=== PATIENT | female | born 1940 | race Caucasian/White ===

== ENCOUNTER 2019-07-13 17:55 | Emergency (ER) | payer OTHER, SELFPAY ==
[2019-07-13 17:57] VITALS: BP 99/48; PULSE 75; RESP 20; TEMP 36.3; O2SAT 97
--- NOTE | 2019-07-13 17:57 | ED.GENADULT ---
HPI - General Adult General Chief complaint: Fall Stated complaint: FALL/INJURED NECK/SHOULDER Time Seen by Provider: 07/13/19 17:57 Source: patient and family Mode of arrival: wheelchair Limitations: no limitations History of Present Illness HPI narrative: 70-year-old female patient presents to the [facility] with complaints of a fall. Patient states she has been dizzy for the last 2 days. Patient states that she was shopping at [employer] today with her daughter and states that she had an episode of dizziness fell backwards hitting her head on a rack and actually broke apart of the rack off. Patient denies loss of consciousness at the time. Patient states that she is having some posterior neck pain along with some left shoulder pain. Denies any lightheadedness or dizziness at this time. Related Data Home Medications Medication Instructions Recorded Confirmed lisinopril 20 mg tablet 20 mg PO BID 06/14/19 lisinopril 20 mg PO BID 07/13/19 07/13/19 omeprazole 07/13/19 Allergies Allergy/AdvReac Type Severity Reaction Status Date / Time clarithromycin Allergy Unknown Unknown Verified 06/14/19 13:20 dextromethorphan Allergy Unknown Unknown Verified 06/14/19 13:20 fenofibrate Allergy Unknown Unknown Verified 06/14/19 13:20 guaifenesin Allergy Unknown Anaphylactic Verified 06/14/19 13:20 Shock levofloxacin Allergy Unknown Nausea Verified 06/14/19 13:20 metformin Allergy Unknown Rash Verified 06/14/19 13:20 Review of Systems Review of Systems: Narrative: CONSTITUTIONAL: Denies fever, chills, or sweats. EYES: Denies visual changes, redness, or discharge. ENT: Denies rhinorrhea, congestion, sore throat, or otalgia. CARDIOVASCULAR: Denies chest pain, palpitations, or edema. RESPIRATORY: Denies cough or dyspnea. GASTROINTESTINAL: Denies abdominal pain, nausea, vomiting, or diarrhea. GENITOURINARY: Denies dysuria or hematuria. SKIN: Denies rash or itching. MUSCULOSKELETAL: Denies back pain, joint pain, or myalgia. Positive neck pain and left shoulder pain NEUROLOGIC: Positive headache, numbness, or weakness. PSYCHIATRIC: Denies anxiety or depression. [facility] Family History Family History Mother Family history of respiratory disorder, Onset Age: 88 Patient's mother is Father Family history of lung cancer, Onset Age: 93 Other Family history of arthritis Social History Social History Smoking status: Former smoker Smoking end date: 05/04/85 Alcohol intake: never Substance use: never Substance use type: does not use Comments At the time of my signature I agree with nursing past medical history, surgical, social, and family history. There is no relevant family history pertinent to the presenting complaint. Exam Narrative: Exam Narrative: GENERAL: Well-appearing, well-nourished, and in no acute distress. HEAD: Normocephalic, atraumatic. EYES: PERRLA and EOMI. ENT: Nares clear, no rhinorrhea or epistaxis. Mucous membranes moist. NECK: Supple, no lymphadenopathy. No surface trauma, no soft tissue or muscle tenderness or spasm noted. Trachea midline. No subq emphysema or crepitus. No dino tenderness, pain with palpation to firm Palpation at posterior midline of the cervical spine. CHEST: Clear to auscultation. No respiratory distress. HEART: Regular rate and rhythm. No murmur heard. Normal peripheral pulses. ABDOMEN: Soft, nontender, nondistended, normal active bowel sounds. EXTREMITIES: Normal range of motion. No edema. Tenderness on palpation to the posterior humerus of the left arm. There is no obvious bruising noted. Patient does have good range of motion to the left shoulder area. SKIN: Warm, dry, no rash. NEURO: Alert and oriented X4, GCS 15. Cranial nerves II through XII grossly intact. No focal neurological deficits. Normal muscle strength and tone. Normal deep tendon reflex
== END 2019-07-13 18:40 | disposition short-term general hospital (02) ==
PROVIDERS: Emergency Provider Nurse Practitioner Family; PCP Family Medicine
DX: M54.2 Cervicalgia (principal); M25.512 Pain in left shoulder; W19.XXXA Unspecified fall, initial encounter; Z87.891 Personal history of nicotine dependence; E78.00 Pure hypercholesterolemia, unspecified; I10 Essential (primary) hypertension; M10.9 Gout, unspecified
CPT/HCPCS: 99215; G0463; L0140

== ENCOUNTER 2019-07-13 18:58 | Emergency (ER) | payer OTHER, SELFPAY ==
--- NOTE | ~2019-07-13 | CT_ITS ---
EXAMINATION: CT cervical spine wo con DATE: 07/13/2019 19:34 INDICATION: Status post fall. Neck pain. TECHNIQUE: Computed tomography (CT) of the cervical spine was performed without intravenous contrast. The dose-length product was 428 mGy-cm. Automated exposure control and iterative reconstruction tech nique were employed. COMPARISON: CT dated 12/24/2014 FINDINGS: No acute fracture, subluxation or dislocation. There is carotid atherosclerosis. Lung apice s are normal. No significant paraspinal soft tissue abnormality. There is uncinate hypertrophy at C3- 4, C5-6 and C6-7. There is multilevel facet hypertrophy, left greater than right. Odontoid process wi thin normal limits. There is degenerative anterolisthesis at C3-4 and C4-5. IMPRESSION: 1. No acute fracture. 2: Moderate cervical spondylosis. Reviewed, dictated and finalized at location A.
--- NOTE | ~2019-07-13 | CT_ITS ---
EXAMINATION: CT brain wo con DATE: 07/13/2019 19:35 INDICATION: Status post fall. TECHNIQUE: Computed tomography (CT) of the head was performed without intravenous contrast. The dose- length product was 605.33 mGy-cm. Automated exposure control and iterative reconstruction technique w ere employed. COMPARISON: None FINDINGS: Brain parenchymal volume is normal for age. No acute intracranial hemorrhage, infarction, m ass or mass effect. No ventriculomegaly or midline shift. Basilar cisterns are patent. No depressed s kull fractures. Paranasal sinuses and mastoids are pneumatized. There is intracranial atherosclerosis . There are scattered mild periventricular and subcortical white matter changes, most likely related to small vessel ischemic disease (microangiopathy). IMPRESSION: 1. No acute intracranial abnormality. Reviewed, dictated and finalized at location A.
--- NOTE | ~2019-07-13 | XR_ITS ---
XR shoulder LT min 2V 07/13/2019 19:41 Indication: Left shoulder pain after fall Procedure: 4 views left shoulder Comparison: No prior studies for comparison. Findings: There are degenerative changes of the left glenohumeral joint. No significant soft tissue a bnormality. No radiopaque foreign bodies. No acute fracture or traumatic malalignment. Impression: 1: No acute fracture. Reviewed, dictated and finalized at location A. Impression: 1: No acute fracture.
[2019-07-13 19:03] VITALS: BP 125/72; PULSE 75; RESP 16; TEMP 36.7; O2SAT 97
--- NOTE | 2019-07-13 19:04 | ED.FALL ---
HPI - Fall General Chief Complaint: Fall Stated Complaint: fall Time Seen by Provider: 07/13/19 19:02 Source: patient Mode of arrival: EMS Limitations: no limitations History of Present Illness HPI Narrative: A 78 y/o female presents to the ED, via EMS, with c/o fall. Pt states that at 1500 today she fell [facility] She notes that she was dizzy prior to her fall and hit her neck when she fell. Pt reports left shoulder pain and neck pain, but denies LOC. She was able to ambulate after the fall and arrived in the ED with a c-spine immobilizer. complaint: fall Onset (ago): hour(s) (4) Fall from: standing Place fall occurred: other ([facility]) Loss of consciousness: none Symptoms prior to fall: dizziness Location of injury: neck Associated symptoms (after fall): neck pain and other (Left shoulder pain) Related Data Home Medications Medication Instructions Recorded Confirmed lisinopril 20 mg tablet 20 mg PO BID 06/14/19 lisinopril 20 mg PO BID 07/13/19 07/13/19 omeprazole 07/13/19 Allergies Allergy/AdvReac Type Severity Reaction Status Date / Time clarithromycin Allergy Unknown Unknown Verified 06/14/19 13:20 dextromethorphan Allergy Unknown Unknown Verified 06/14/19 13:20 fenofibrate Allergy Unknown Unknown Verified 06/14/19 13:20 guaifenesin Allergy Unknown Anaphylactic Verified 06/14/19 13:20 Shock levofloxacin Allergy Unknown Nausea Verified 06/14/19 13:20 metformin Allergy Unknown Rash Verified 06/14/19 13:20 Review of Systems Review of Systems: All systems reviewed & are unremarkable except as noted in HPI and below Musculoskeletal: Musculoskeletal: Reports arthralgias (Left shoulder) and Reports neck pain Neurologic: Denies other (LOC) [facility] Past Medical History Medical History Acute pain of left shoulder Anxiety Arthritis Breast cancer Bronchitis Cataracts, bilateral Chronic kidney disease, stage 3 (moderate) Depression Dermatitis Essential (primary) hypertension GENARO (generalized anxiety disorder) Gastroesophageal reflux disease without esophagitis History of radiation therapy Idiopathic gout, unspecified site Major depressive disorder, recurrent, moderate Mixed hyperlipidemia Morbid (severe) obesity due to excess calories Neuropathic pain PAD (peripheral artery disease) Post-menopausal Posterior neck pain RLS (restless legs syndrome) TMJ pain dysfunction syndrome Type 2 diabetes mellitus with diabetic neuropathy, unspecified Type 2 diabetes mellitus with other diabetic kidney complication Surgical History Surgical History History of cataract surgery History of hysterectomy History of lumpectomy of left breast Family History Family History Mother Family history of respiratory disorder, Onset Age: 88 Patient's mother is Father Family history of lung cancer, Onset Age: 93 Other Family history of arthritis Social History Social History Smoking status: Former smoker Smoking end date: 05/04/85 Alcohol intake: never Substance use: never Substance use type: does not use Exam Narrative: Exam Narrative: APPEARANCE: Well appearing, no apparent distress, well-nourished. HEENT: normocephalic atraumtaic. Nares patent no facial tenderness EYES: PERRL NECK: C-collar in place supple. No midline tenderness to palpation. Tender to palpation of bilateral vertebral C5-7 RESPIRATORY: No respiratory distress. Clear to auscultation bilaterally CARDIOVASCULAR: Regular rate and rhythm without murmurs rubs or gallops. ABDOMINAL: Soft, nontender, nondistended, no rebound or guarding MUSCULOSKELETAl: Moves all extremities. No tenderness to palpation of right upper and bilateral lower extremities. No clubbing cyanosis or edema tender to palpation ov
[2019-07-13 20:26] VITALS: BP 108/67; PULSE 81; RESP 16; TEMP 36.8; O2SAT 100
== END 2019-07-13 20:28 | disposition home or self-care (01) ==
PROVIDERS: Emergency Provider Emergency Medicine; PCP Family Medicine
DX: S16.1XXA Strain of muscle, fascia and tendon at neck level, initial encounter (principal); S40.012A Contusion of left shoulder, initial encounter; F41.9 Anxiety disorder, unspecified; M19.90 Unspecified osteoarthritis, unspecified site; Z85.3 Personal history of malignant neoplasm of breast; I12.9 Hypertensive chronic kidney disease with stage 1 through stage 4 chronic kidney disease, or unspecified chronic kidney disease; N18.3 Chronic kidney disease, stage 3 (moderate); E11.42 Type 2 diabetes mellitus with diabetic polyneuropathy; E11.22 Type 2 diabetes mellitus with diabetic chronic kidney disease; K21.9 Gastro-esophageal reflux disease without esophagitis; W01.0XXA Fall on same level from slipping, tripping and stumbling without subsequent striking against object, initial encounter
CPT/HCPCS: 70450; 72125; 73030; 99284

== ENCOUNTER 2020-09-04 13:23 | Outpatient (CLI) | payer OTHER, SELFPAY ==
--- NOTE | ~2020-09-04 | US_ITS ---
EXAMINATION: US art doppler w cecily SANCHEZ EXAM DATE: 09/04/2020 14:31 INDICATION: R60.0 - Localized edema. Peripheral vascular disease. TECHNIQUE: Segmental pressures and plethysmographic and Doppler waveforms of the brachial and lower e xtremity arteries were obtained. There is no prior study for comparison. FINDINGS: Right and left brachial artery pressures of 133 mm Hg and 126 mm Hg, respectively, are concordant (no rmal difference <= 30 mmHg). RIGHT LEG: The ankle-brachial index (KISHA) is 0.94 (normal >= 0.9-1). The great toe-brachial index (TBI) is 0.53 (normal >= 0.65). The lower extremity ratios, segmental pressure gradients as follows; Proximal superficial femoral artery:- Could not cuff occlude ( mmHg). Distal superficial femoral artery: ----- 1.41 (188 mmHg). Popliteal: 1.31 (174 mmHg). Dorsalis pedis: 0.94 (125 mmHg). Posterior tibial: 0.65 (86 mmHg). (Normal gradients <= 20-30 mmHg between adjacent levels on the same leg or the same levels on the two legs). Arterial waveforms are monophasic. LEFT LEG: The ankle-brachial index (KISHA) is 1.13 (normal >= 0.9-1). The great toe-brachial index (TBI) is 0.68 (normal >= 0.65). The lower extremity ratios, segmental pressure gradients as follows; Proximal superficial femoral artery:- Could not Cuff Occlude ( mmHg). Distal superficial femoral artery: ----- 1.23 (164 mmHg). Popliteal: 1.26 (167 mmHg). Dorsalis pedis: 1.04 (138 mmHg). Posterior tibial: 1.13 (150 mmHg). (Normal gradients <= 20-30 mmHg between adjacent levels on the same leg or the same levels on the two legs). Arterial waveforms are monophasic. IMPRESSION: 1. Right ankle-brachial index 0.94, normal. 2. Left ankle-brachial index 1.13, normal. 3. Segmental pressures as above. Reviewed, dictated and finalized at location B.
--- NOTE | ~2020-09-04 | US_ITS ---
EXAMINATION: US venous doppler LE EXAM DATE: 09/04/2020 14:31 INDICATION: Localized edema, peripheral vascular disease. TECHNIQUE: Multiple grayscale, color flow and Doppler images of the lower extremity deep venous syste ms bilaterally were obtained and reviewed. There is no prior study for comparison. FINDINGS: Right side: The right common femoral, femoral and profunda veins demonstrate normal color flow, respi ratory variation, augmentation and compressibility. Compressibility, color flow confirmed within the right popliteal, posterior tibial, peroneal, and greater saphenous veins. Left side: The left common femoral, femoral and profunda veins demonstrate normal color flow, respira tory variation, augmentation and compressibility. Compressibility, color flow confirmed within the l eft popliteal, posterior tibial, peroneal, and greater saphenous veins. IMPRESSION: 1. No lower extremity deep venous thrombosis bilaterally. Reviewed, dictated and finalized at location B.
== END 2020-09-04 13:24 | disposition home or self-care (01) ==
LOC: ANHIMG 13:25
PROVIDERS: PCP Family Medicine; Visit Provider Physician Assistant
DX: R60.0 Localized edema (principal); I73.9 Peripheral vascular disease, unspecified; I10 Essential (primary) hypertension
CPT/HCPCS: 93923; 93970

== ENCOUNTER 2021-04-17 22:17 | Emergency (ER) | payer OTHER, SELFPAY ==
--- NOTE | ~2021-04-17 | XR_ITS ---
EXAMINATION: XR tibia fibula LT 2V INDICATION: Left lower leg pain TECHNIQUE: Two views of the left tibia and fibula are obtained on three radiographs. COMPARISON: 12/12/2013 FINDINGS: There is no fracture, dislocation, or subluxation. There is tricompartmental osteoarthritis of the knee, moderate in the medial and lateral compartments and severe in the patellofemoral compar tment. Mild osteoarthritis is noted at the ankle. There are posterior and plantar calcaneal enthesoph ytes. The soft tissues are unremarkable. There is a small knee joint effusion. IMPRESSION: 1. Osteoarthritis without acute osseous abnormality. Reviewed, dictated and finalized at location A. RT PRESS OPERATOR
[2021-04-17 22:26] VITALS: BP 144/104; PULSE 71; RESP 18; TEMP 36.4; O2SAT 97
[2021-04-17 23:46] VITALS: BP 177/80; PULSE 64; RESP 13; TEMP 36.6; O2SAT 96
--- NOTE | 2021-04-18 00:11 | ED.EXTPRO ---
HPI - Extremity Problem General Chief complaint: Extremity Problem,Nontraumatic Stated complaint: leg pain Time Seen by Provider: 04/17/21 23:37 Source: patient History of Present Illness HPI Narrative: Patient presents with left lower extremity pain. Pain is on the distal medial aspect of her left lower leg. She feels warm and red. Reports a history of cellulitis and this feels similar to her prior episodes. Her pain is achy, constant, worse with walking around, no radiation. Symptoms started this morning and appear to be getting worse so she came to the ER for evaluation she denies any fevers, cough, congestion she denies any nausea or vomiting she denies any trauma to the area Related Data Allergies Allergy/AdvReac Type Severity Reaction Status Date / Time clarithromycin Allergy Unknown Unknown Verified 04/17/21 23:45 dextromethorphan Allergy Unknown Unknown Verified 04/17/21 23:45 fenofibrate Allergy Unknown Unknown Verified 04/17/21 23:45 guaifenesin Allergy Unknown Anaphylactic Verified 04/17/21 23:45 Shock levofloxacin Allergy Unknown Nausea Verified 04/17/21 23:45 metformin Allergy Unknown Rash Verified 04/17/21 23:45 Review of Systems Review of Systems: CONSTITUTIONAL: Denies fever, chills, or sweats. EYES: Denies visual changes, redness, or discharge. ENT: Denies rhinorrhea, congestion, sore throat, or otalgia. CARDIOVASCULAR: Denies chest pain, palpitations, or edema. RESPIRATORY: Denies cough or dyspnea. GASTROINTESTINAL: Denies abdominal pain, nausea, vomiting, or diarrhea. GENITOURINARY: Denies dysuria or hematuria. SKIN: Denies rash or itching. MUSCULOSKELETAL: Denies back pain, joint pain, or myalgia. NEUROLOGIC: Denies headache, numbness, dizziness, or weakness. PSYCHIATRIC: Denies anxiety or depression. All systems reviewed & are unremarkable except as noted in HPI and below PMFSH Past Medical History Medical History Acute pain of left shoulder Allergic rhinosinusitis Anxiety Arthritis Atherosclerosis of abdominal aorta Breast cancer Bronchitis Cataracts, bilateral Chronic kidney disease, stage 3 (moderate) Depression Dermatitis Essential (primary) hypertension GENARO (generalized anxiety disorder) Gastroesophageal reflux disease without esophagitis History of radiation therapy Idiopathic gout, unspecified site Lumbar spondylosis Major depressive disorder, recurrent, moderate Mixed hyperlipidemia Morbid (severe) obesity due to excess calories Neuropathic pain Osteoarthritis of knees, bilateral Osteoarthritis of right ankle PAD (peripheral artery disease) Post-menopausal Posterior neck pain Prediabetes RLS (restless legs syndrome) TMJ pain dysfunction syndrome Type 2 diabetes mellitus with diabetic neuropathy, unspecified Type 2 diabetes mellitus with other diabetic kidney complication Surgical History Surgical History History of cataract surgery History of hysterectomy History of lumpectomy of left breast Family History Family History Mother Family history of respiratory disorder, Onset Age: 88 Patient's mother is Father Family history of lung cancer, Onset Age: 93 Other Family history of arthritis Social History Social History Social History: Tobacco type: cigarettes Second hand tobacco smoke exposure: No Smoking end date: 05/04/85 Alcohol intake: never Substance use: never Substance use type: does not use Additional living arrangements comments: Pt daughter and her lives with her. Gender identity (if verbalized by the patient): Female Sexual Orientation (if Verbalized by the Patient): Straight or Heterosexual Exam Narrative: GENERAL: Well-appearing, well-nourished, and in no acute distress. HEAD:
[2021-04-18 00:46] VITALS: BP 149/67; PULSE 62; RESP 16; O2SAT 95
== END 2021-04-18 00:47 | disposition home or self-care (01) ==
PROVIDERS: Emergency Provider Emergency Medicine; PCP Family Medicine
DX: L03.116 Cellulitis of left lower limb (principal); F41.9 Anxiety disorder, unspecified; M19.90 Unspecified osteoarthritis, unspecified site; F32.A Depression, unspecified; I12.9 Hypertensive chronic kidney disease with stage 1 through stage 4 chronic kidney disease, or unspecified chronic kidney disease; E11.22 Type 2 diabetes mellitus with diabetic chronic kidney disease; N18.30 Chronic kidney disease, stage 3 unspecified; E11.21 Type 2 diabetes mellitus with diabetic nephropathy; F17.210 Nicotine dependence, cigarettes, uncomplicated; Z85.3 Personal history of malignant neoplasm of breast
CPT/HCPCS: 73590; 99283

== ENCOUNTER 2022-09-30 12:11 | Outpatient (CLI) | payer OTHER, SELFPAY ==
--- NOTE | ~2022-09-30 | XR_ITS ---
Clinical Indication: Cough PA and lateral views of the chest: Comparison: None Findings: The lungs are clear, without evidence of focal consolidation or pleural effusion. Cardiome diastinal silhouette is within normal limits. Bones and soft tissues are unremarkable. Impression: Normal chest. Reviewed, dictated and finalized at location . Impression: Normal chest.
== END 2022-09-30 12:12 | disposition home or self-care (01) ==
PROVIDERS: PCP Family Medicine; Visit Provider Physician Assistant
DX: R05.9 Cough, unspecified (principal)
CPT/HCPCS: 71046

== ENCOUNTER 2023-03-25 06:04 | Emergency (ER) | payer OTHER, SELFPAY ==
[2023-03-25] VITALS (12 sets, daily range): BP systolic 159–191; BP diastolic 68–84; PULSE 69–77; RESP 7–18; TEMP 36.5; O2SAT 94–96
--- NOTE | ~2023-03-25 | XR_ITS ---
EXAMINATION: XR chest 2V DATE: 03/25/2023 06:42 INDICATION: Cough TECHNIQUE: PA and lateral views of the chest are obtained. COMPARISON: 09/30/2022 FINDINGS: The lungs are free of acute opacities. No pleural effusion or pneumothorax. The cardiomedia stinal silhouette is normal. There are bridging osteophytes at multiple levels in the spine, consiste nt with diffuse idiopathic skeletal hyperostosis (DISH). IMPRESSION: 1. No acute cardiopulmonary abnormality. Reviewed, dictated and finalized at location F. OGRAPHER ASSISTANT
--- NOTE | 2023-03-25 06:20 | ECG_ITS ---
Measurements Intervals [place] Rate: 74 P: 61 NM: 159 QRS: 51 QRSD: 105 T: 40 QT: 403 QTc: 448 Interpretive Statements SINUS RHYTHM BASELINE ARTIFACT-V6 NORMAL ECG NO PREVIOUS ECG AVAILABLE FOR COMPARISON Electronically Signed On 03-25-2023 7:00:20 INTEGRATION SOFTWARE ENGINEER by Eleazar Brennan D.O.
--- NOTE | 2023-03-25 06:34 | ED.URI ---
HPI - URI/Sore Throat General Chief Complaint: Upper Respiratory Infection <Caitie Birch MD - Last Filed: 03/25/23 06:40> Stated Complaint: upper resp infection <Caitie Birch MD - Last Filed: 03/25/23 06:40> Time Seen by Provider: 03/25/23 06:20 <Caitie Birch MD - Last Filed: 03/25/23 06:40> History of Present Illness HPI Narrative: patient presents the emergency department from home with a cough. For the past 4 days she has had a persistent worsening cough and mild shortness of breath. Has history of bronchitis but denies history of COPD or congestive heart failure. Denies headache or chest pain. Denies fevers and chills. Patient is very pleasant and overall well-appearing <Caitie Birch MD - Last Filed: 03/25/23 06:40> 82-year-old female patient presents to the emergency department from home with a cough. For the past 4 days she has had a persistent worsening cough and mild shortness of breath. Has history of bronchitis but denies history of COPD or congestive heart failure. Denies headache or chest pain. Denies fevers and chills. Patient is very pleasant and overall well-appearing <Brian Nevarez MD - Last Filed: 03/25/23 17:51> Related Data Home Medications: Home Medications Medication Instructions Recorded Confirmed aspirin 81 mg tablet,delayed 81 mg PO DAILY 11/05/22 11/05/22 release <Caitie Birch MD - Last Filed: 03/25/23 06:40> Allergies/Adverse Reactions: Allergies Allergy/AdvReac Type Severity Reaction Status Date / Time clarithromycin Allergy Unknown Unknown Verified 11/03/22 14:59 dextromethorphan Allergy Unknown Unknown Verified 11/03/22 14:59 fenofibrate Allergy Unknown Unknown Verified 11/03/22 14:59 guaifenesin Allergy Unknown Anaphylactic Verified 11/03/22 14:59 Shock levofloxacin Allergy Unknown Nausea Verified 11/03/22 14:59 metformin Allergy Unknown Rash Verified 11/03/22 14:59 <Caitie Birch MD - Last Filed: 03/25/23 06:40> Review of Systems Review of Systems: review of systems negative except what is documented in the HPI <Caitie Birch MD - Last Filed: 03/25/23 06:40> [facility] Past Medical History Medical History: Medical History Acute pain of left shoulder Allergic rhinosinusitis Anxiety Arthritis Atherosclerosis of abdominal aorta Breast cancer Breast cancer screening Breast screening Bronchitis Cataracts, bilateral Cellulitis of lower extremity Cellulitis of right lower extremity Chronic kidney disease, stage 3 (moderate) Depression Dermatitis Essential (primary) hypertension GENARO (generalized anxiety disorder) Gastroesophageal reflux disease without esophagitis History of radiation therapy Hypotension Idiopathic gout, unspecified site Injury of left rotator cuff Lumbar spondylosis Major depressive disorder, recurrent, moderate Mixed hyperlipidemia Morbid (severe) obesity due to excess calories Neuropathic pain Osteoarthritis of knees, bilateral Osteoarthritis of right ankle PAD (peripheral artery disease) Post-menopausal Posterior neck pain Postmenopausal Prediabetes RLS (restless legs syndrome) TMJ pain dysfunction syndrome Type 2 diabetes mellitus with diabetic neuropathy, unspecified Type 2 diabetes mellitus with other diabetic kidney complication <Caitie Birch MD - Last Filed: 03/25/23 06:40> Surgical History Surgical History: Surgical History History of cataract surgery History of hysterectomy History of lumpectomy of left breast <Caitie Birch MD - Last Filed: 03/25/23 06:40> Family History Family History: Family History Mother Family history of respiratory disorder, Onset Age: 88 Patient's mother is Father Family history o
[2023-03-25 06:38] LABS: Basophils Percent Auto 0.3 % (0.2-1.2); Eosinophils Percent Auto 0.1 % (0-4.4); Hematocrit 40.1 % (37.0-47.0); Hemoglobin 12.9 g/dL (12.0-15.0); Immature Granulocyte Absolute 0.07 K/mm3 (0.00-0.031); Immature Granulocyte Percent A 0.9 % (0-0.5); Lymphocytes Percent Auto 22.8 % (18.3-44.2); Mean Corpuscular HGB Conc 32.2 g/dl (32-36); Mean Corpuscular Hemoglobin 29.5 pg (26-34); Mean Corpuscular Volume 91.6 fl (80-100); Mean Platelet Volume 9.4 fl (7.4-10.4); Monocytes Absolute Auto 0.6 K/mm3 (0.1-0.6); Monocytes Percent Auto 8.3 % (2.6-8.5); Neutrophils Percent Auto 67.6 % (45.5-73.1); Platelet Count Result 205 k/mm3 (150-375); Red Blood Count 4.38 M/mm3 (4.2-5.4); White Blood Count 7.5 K/mm3 (4.5-10.0)
[2023-03-25] MEDS: BENZONATATE 100 MG CAPSULE PO (06:45)
[2023-03-25 06:47] LABS: Alanine Aminotransferase 24 U/L (6-35); Albumin Level 4.4 g/dL (3.5-5.1); Alkaline Phosphatase 49 U/L (38-126); Anion Gap 16 mmol/L (8-16); Aspartate Amino Transferase 34 U/L (14-36); Bilirubin,Total 0.5 mg/dL (0.2-1.3); Blood Urea Nitrogen 19 mg/dL (7-17); Calcium 9.6 mg/dL (8.4-10.2); Carbon Dioxide 19 mmol/L (22-30); Chloride 103 mmol/L (98-107); Estimated CRCL calculation 52 ml/min; Estimated Glomerular Filt Rate > 60; Glucose 161 mg/dL (65-110); Sodium 138 mmol/L (137-145)
[2023-03-25] MEDS: ALBUTEROL SULFATE NEB 2.5 MG/3 ML INH INHALATION (06:53)
[2023-03-25 07:11] LABS: Influenza A QL RT-PCR Negative (Negative); Influenza B QL RT-PCR Negative (Negative); RSV RNA, RT-PCR Positive (Negative); SARS-CoV-2 RNA PCR Negative (Negative)
== END 2023-03-25 08:10 | disposition home or self-care (01) ==
LOC: ANHED 06:52
PROVIDERS: Emergency Provider Emergency Medicine; PCP Family Medicine
DX: J06.9 Acute upper respiratory infection, unspecified (principal); B97.4 Respiratory syncytial virus as the cause of diseases classified elsewhere; Z20.822 Contact with and (suspected) exposure to COVID-19; I70.0 Atherosclerosis of aorta; I12.9 Hypertensive chronic kidney disease with stage 1 through stage 4 chronic kidney disease, or unspecified chronic kidney disease; E11.22 Type 2 diabetes mellitus with diabetic chronic kidney disease; N18.30 Chronic kidney disease, stage 3 unspecified; E11.40 Type 2 diabetes mellitus with diabetic neuropathy, unspecified; E11.51 Type 2 diabetes mellitus with diabetic peripheral angiopathy without gangrene; I73.9 Peripheral vascular disease, unspecified; E78.2 Mixed hyperlipidemia; E66.01 Morbid (severe) obesity due to excess calories; Z68.35 Body mass index [BMI] 35.0-35.9, adult; M10.00 Idiopathic gout, unspecified site; M17.0 Bilateral primary osteoarthritis of knee; M19.071 Primary osteoarthritis, right ankle and foot; G25.81 Restless legs syndrome; K21.9 Gastro-esophageal reflux disease without esophagitis; Z85.3 Personal history of malignant neoplasm of breast; Z92.3 Personal history of irradiation; Z87.891 Personal history of nicotine dependence; Z98.49 Cataract extraction status, unspecified eye; Z90.710 Acquired absence of both cervix and uterus; Z79.82 Long term (current) use of aspirin
CPT/HCPCS: 36415; 71046; 80053; 85025; 87637; 93005; 94640; 99284; A9270

== ENCOUNTER 2023-08-05 16:57 | Emergency (ER) | payer OTHER, SELFPAY ==
--- NOTE | ~2023-08-05 | XR_ITS ---
EXAMINATION: XR chest 2V DATE: 08/05/2023 18:13 INDICATION: Cough and fever TECHNIQUE: frontal and lateral views of the chest were obtained. COMPARISON: Chest radiograph dated 03/25/2023 FINDINGS: Unchanged calcified nodules at the anterolateral left lung base consistent with old granulomatous dis ease. No other airspace opacities, pulmonary edema, pleural effusion or pneumothorax. Heart size is n ormal. Moderate thoracic spondylosis with bridging osteophytes at multiple levels consistent with dif fuse idiopathic skeletal hyperostosis (DISH). IMPRESSION: 1. No acute cardiopulmonary disease. Reviewed, dictated and finalized at location A.
[2023-08-05 17:06] VITALS: BP 121/52; PULSE 82; RESP 20; TEMP 36.8; O2SAT 95
--- NOTE | 2023-08-05 17:55 | ED.GENADULT ---
HPI - General Adult General Chief complaint: Upper Respiratory Infection <Janette Kamraa September, [employer]AD - Last Filed: 08/05/23 17:58> Stated complaint: DYSPNEA/ COUGH <Janette Kamara September, - Last Filed: 08/05/23 17:58> Time Seen by Provider: 08/05/23 17:56 <Janette Kamara September, [employer] - Last Filed: 08/05/23 17:58> Focused HPI: Adele Aquino is an 82 y/o female who presents with complaints of having sore throat and cough for about a week or two but today got so bad while coughing she though her airway was going to get cut off. She also had a temp of 100 today at 1300 and took tylenol at 1400 GENERAL: well-nourished, and in no acute distress. HEAD: Normocephalic, atraumatic. CHEST: Clear to auscultation. ?No respiratory distress. HEART: Regular rate and rhythm.? NEURO: ?Alert and oriented x3. Patient screened in triage and initial orders placed.? ?Additional care and disposition to be based upon?diagnostic testing and treatment. <Janette Kamara September, - Last Filed: 08/05/23 17:58> Focused HPI: Adele Knutson is an 82 y/o female who presents with complaints of having a sore throat and cough for about a week or two but today got so bad while coughing she though her airway was going to get cut off. She also had a temp of 100 today at 1300 and took tylenol at 1400 GENERAL: Well-nourished, and in no acute distress. HEAD: Normocephalic, atraumatic. CHEST: Clear to auscultation. ?No respiratory distress. HEART: Regular rate and rhythm.? NEURO: ?Alert and oriented x3. Patient screened in triage and initial orders placed.? ?Additional care and disposition to be based upon?diagnostic testing and treatment. <Yancy Wilder PA-C - Last Filed: 08/05/23 22:14> Related Data Home medications: Home Medications Medication Instructions Recorded Confirmed aspirin 81 mg tablet,delayed 81 mg PO DAILY 11/05/22 06/01/23 release <Janette Choudhury, [employer] - Last Filed: 08/05/23 17:58> Allergies/adverse reactions: Allergies Allergy/AdvReac Type Severity Reaction Status Date / Time clarithromycin Allergy Unknown Unknown Verified 06/01/23 13:33 dextromethorphan Allergy Unknown Unknown Verified 06/01/23 13:33 fenofibrate Allergy Unknown Unknown Verified 06/01/23 13:33 guaifenesin Allergy Unknown Anaphylactic Verified 06/01/23 13:33 Shock levofloxacin Allergy Unknown Nausea Verified 06/01/23 13:33 metformin Allergy Unknown Rash Verified 06/01/23 13:33 <Janette Choudhury, [employer] - Last Filed: 08/05/23 17:58> Review of Systems Review of Systems: CONSTITUTIONAL: Reports fever ENT: Reports rhinorrhea, congestion, sore throat CARDIOVASCULAR: Denies chest pain, or edema. RESPIRATORY: Reports cough and dyspnea. <Yancy Wilder PA-C - Last Filed: 08/05/23 22:14> All systems reviewed & are unremarkable except as noted in HPI and below <Yancy Wilder PA-C - Last Filed: 08/05/23 22:14> [facility] Past Medical History Medical History: Medical History Acute pain of left shoulder Allergic rhinosinusitis Anxiety Arthritis Atherosclerosis of abdominal aorta Breast cancer Breast cancer screening Breast screening Bronchitis Cataracts, bilateral Cellulitis of lower extremity Cellulitis of right lower extremity Chronic kidney disease, stage 3 (moderate) Depression Dermatitis Essential (primary) hypertension GENARO (generalized anxiety disorder) Gastroesophageal reflux disease without esophagitis History of radiation therapy Hypotension Idiopathic gout, unspecified site Injury of left rotator cuff Lumbar spondylosis Major depressive disorder, recurrent, moderate Mixed hyperlipidemia Morbid (severe) obesity due to excess calories Neuropathic pain Osteoarthritis of knees, bilateral Osteoarthritis of right ankle PAD (peripheral artery disease) Post-menopausal Posterior neck pain Postmenopausal Prediabetes RLS (restless legs syndrome) TMJ pain dysfunction syndrome Type 2 diab
[2023-08-05 18:22] LABS: Basophils Absolute Auto 0.1 K/mm3 (0.0-0.1); Basophils Percent Auto 0.6 % (0.2-1.2); Eosinophils Absolute Auto 0.6 K/mm3 (0-0.3); Eosinophils Percent Auto 6.5 % (0-4.4); Hematocrit 33.8 % (37.0-47.0); Immature Granulocyte Absolute 0.02 K/mm3 (0.00-0.031); Immature Granulocyte Percent A 0.2 % (0-0.5); Lymphocytes Absolute Auto 1.78 K/mm3 (0.9-3.2); Lymphocytes Percent Auto 20.3 % (18.3-44.2); Mean Corpuscular HGB Conc 32.5 g/dl (32-36); Mean Corpuscular Hemoglobin 30.7 pg (26-34); Mean Corpuscular Volume 94.4 fl (80-100); Mean Platelet Volume 9.2 fl (7.4-10.4); Monocytes Absolute Auto 0.7 K/mm3 (0.1-0.6); Neutrophils Absolute Auto 5.6 K/mm3 (1.3-6.7); Neutrophils Percent Auto 64.4 % (45.5-73.1); Platelet Count Result 180 k/mm3 (150-375); Red Blood Count 3.58 M/mm3 (4.2-5.4); Red Cell Distribution Width 12.6 % (11.5-14.5); White Blood Count 8.8 K/mm3 (4.5-10.0)
[2023-08-05 18:32] LABS: Alanine Aminotransferase 17 U/L (6-35); Albumin Level 3.9 g/dL (3.5-5.1); Alkaline Phosphatase 45 U/L (38-126); Anion Gap 4 mmol/L (4-12); Aspartate Amino Transferase 31 U/L (14-36); Bilirubin,Total 0.4 mg/dL (0.2-1.3); Blood Urea Nitrogen 20 mg/dL (7-17); Calcium 9.3 mg/dL (8.4-10.2); Carbon Dioxide 29 mmol/L (22-30); Chloride 102 mmol/L (98-107); Estimated CRCL calculation 44 ml/min; Estimated Glomerular Filt Rate 60; Glucose 97 mg/dL (65-110); Sodium 135 mmol/L (137-145)
[2023-08-05 18:57] LABS: Influenza A QL RT-PCR Negative (Negative); Influenza B QL RT-PCR Negative (Negative); RSV RNA, RT-PCR Negative (Negative); SARS-CoV-2 RNA PCR Negative (Negative)
[2023-08-05 19:47] VITALS: O2SAT 95
[2023-08-05] MEDS: predniSONE 20 MG TABLET 40 MG PO (20:23)
[2023-08-05] MEDS: IPRATROPIUM 0.5 MG/ALBUTEROL SULFATE 2.5 MG AMPUL.NEB 3 ML INHALATION (20:25)
[2023-08-05 20:27] VITALS: PULSE 67; RESP 19
[2023-08-05 20:41] VITALS: PULSE 83; RESP 19
[2023-08-05 21:58] VITALS: BP 186/84; PULSE 77; RESP 20; O2SAT 97
== END 2023-08-05 22:25 | disposition home or self-care (01) ==
PROVIDERS: Nurse Practitioner Family; Emergency Provider Physician Assistant; PCP Family Medicine
DX: J20.9 Acute bronchitis, unspecified (principal); I10 Essential (primary) hypertension; F41.1 Generalized anxiety disorder; K21.9 Gastro-esophageal reflux disease without esophagitis; E78.5 Hyperlipidemia, unspecified; E11.9 Type 2 diabetes mellitus without complications; Z85.3 Personal history of malignant neoplasm of breast; Z87.891 Personal history of nicotine dependence; Z20.822 Contact with and (suspected) exposure to COVID-19
CPT/HCPCS: 36415; 71046; 80053; 85025; 87637; 94640; 99283; J7512

== ENCOUNTER 2023-08-09 21:23 | Inpatient (IN) | payer OTHER, SELFPAY ==
[2023-08-09] VITALS (17 sets, daily range): BP systolic 144–197; BP diastolic 84–94; PULSE 88–94; RESP 20–26; TEMP 37.7; O2SAT 88–96
--- NOTE | ~2023-08-09 | XR_ITS ---
Portable chest x-ray Comparison: 08/05/2023 Clinical History: Shortness of breath Findings: There is new consolidation at the left lower lobe and inferior right upper lobe. Cardiome diastinal silhouette is stable. Bones and soft tissues are unremarkable. Impression: New patchy consolidation left lower lobe and inferior right upper lobe, suspicious for multifocal pne umonia. Reviewed, dictated and finalized at location . Impression: New patchy consolidation left lower lobe and inferior right upper lobe, suspici ous for multifocal pneumonia.
--- NOTE | ~2023-08-09 | CT_ITS ---
Clinical Indication: Shortness of breath CT Scan of the Chest with Contrast: Technique: Contiguous sections were acquired throughout the chest after intravenous administration of 100 cc of Omnipaque 350. Dose reduction technique was used on this scan by utilizing automated expos ure control and iterative reconstruction technique. The dose-length product (DLP) was 464.00 mGy-cm. Findings: Shotty mediastinal lymph nodes are frankly enlarged by size criteria. There is no filling defect in t he pulmonary arterial tree to suggest pulmonary embolus. There is no evidence of aortic dissection or aneurysm. There is no evidence of pleural or pericardial effusion. There is patchy airspace consolidation in the bilateral lower lobes, lingula, and inferior right uppe r lobe. There is probable chronic atelectatic change or scarring at the right middle lobe and lingula . Images through the upper abdomen reveal no abnormalities. Impression: No evidence of pulmonary embolus, aortic dissection, or aortic aneurysm. Patchy airspace consolidation bilateral lower lobes and inferior right upper lobe, suspicious for pne umonia. Probable chronic scarring or atelectasis at the lingula and right middle lobe. Reviewed, dictated and finalized at [facility]. Impression: No evidence of pulmonary embolus, aortic dissection, or aortic aneurysm. Patchy airspace consolidation bilateral lower lobes and inferior right upper lo be, suspicious for pneumonia. Probable chronic scarring or atelectasis at the lingula and right middle lobe.
[2023-08-09] MEDS: IPRATROPIUM 0.5 MG/ALBUTEROL SULFATE 2.5 MG AMPUL.NEB 3 ML INHALATION (21:56)
[2023-08-09 22:05] LABS: Alveolar/Arterial O2 Gradient 97.5 mmHg; Fractional Inspired Oxygen 28 %; HCO3 ABG 24.6 mEq/l (22.0-26.0); Oxygen Content ABG 16.9 %vol (16.0-22.0); Oxygen Saturation ABG 92.3 % (95.0-100.0); Oxyhemoglobin 90.2 % THb (90.0-100.0); PCO2 ABG 35.8 mmHg (35.0-45.0); PO2 ABG 59.9 mmHg (80.0-100.0); PO2 FiO2 Ratio Arterial Blood 2.14 %; Total Hemoglobin 13.3 g/dL (12.0-18.0); pH ABG 7.455 (7.350-7.450)
[2023-08-09 22:07] LABS: Device NASAL CANNULA; Modified Allen's Test Pass; Site Drawn RIGHT RADIAL
[2023-08-09 22:34] LABS: Basophils Percent Auto 0.1 % (0.2-1.2); Hematocrit 38.3 % (37.0-47.0); Hemoglobin 12.2 g/dL (12.0-15.0); Immature Granulocyte Absolute 0.07 K/mm3 (0.00-0.031); Immature Granulocyte Percent A 0.5 % (0-0.5); Lymphocytes Absolute Auto 2.47 K/mm3 (0.9-3.2); Lymphocytes Percent Auto 18.2 % (18.3-44.2); Mean Corpuscular HGB Conc 31.9 g/dl (32-36); Mean Corpuscular Hemoglobin 30.1 pg (26-34); Mean Corpuscular Volume 94.6 fl (80-100); Mean Platelet Volume 9.7 fl (7.4-10.4); Monocytes Absolute Auto 1.7 K/mm3 (0.1-0.6); Monocytes Percent Auto 12.5 % (2.6-8.5); Neutrophils Absolute Auto 9.3 K/mm3 (1.3-6.7); Neutrophils Percent Auto 68.7 % (45.5-73.1); Platelet Count Result 241 k/mm3 (150-375); Red Blood Count 4.05 M/mm3 (4.2-5.4); White Blood Count 13.6 K/mm3 (4.5-10.0)
[2023-08-09 22:44] LABS: Alanine Aminotransferase 28 U/L (6-35); Albumin Level 4.3 g/dL (3.5-5.1); Alkaline Phosphatase 56 U/L (38-126); Anion Gap 9 mmol/L (4-12); Aspartate Amino Transferase 41 U/L (14-36); Bilirubin,Total 0.5 mg/dL (0.2-1.3); Blood Urea Nitrogen 33 mg/dL (7-17); Calcium 9.6 mg/dL (8.4-10.2); Carbon Dioxide 27 mmol/L (22-30); Chloride 102 mmol/L (98-107); Estimated CRCL calculation 50 ml/min; Estimated Glomerular Filt Rate > 60; Glucose 109 mg/dL (65-110); INR 1.1; Potassium 3.7 mmol/L (3.4-5.0); Prothrombin Time 14.8 Seconds (11.1-14.7); Sodium 138 mmol/L (137-145)
[2023-08-09 22:45] LABS: Partial Thromboplastin Time 31.6 Seconds (22.3-36.8)
[2023-08-09] MEDS: ONDANSETRON INJ 4 MG/2 ML VIAL IV PUSH (22:46)
[2023-08-09 22:51] LABS: Lactic Acid Reflex 2.1 mmol/L (0.7-2.0)
[2023-08-09] MEDS: ASPIRIN 81 MG CHEWABLE TABLET 324 MG PO (23:11)
--- NOTE | 2023-08-09 23:14 | PC.NURSE ---
Report given to MELANIA Edmondson
[2023-08-09 23:18] LABS: Influenza A QL RT-PCR Negative (Negative); Influenza B QL RT-PCR Negative (Negative); RSV RNA, RT-PCR Negative (Negative); SARS-CoV-2 RNA PCR Negative (Negative)
[2023-08-09 23:23] LABS: Procalcitonin 0.1 ng/mL
--- NOTE | 2023-08-09 23:42 | PC.NURSE ---
Report received from MELANIA Monzon. Assumed care of patient at this time.
[2023-08-10] VITALS (52 sets, daily range): BP systolic 92–163; BP diastolic 45–86; PULSE 64–91; RESP 15–25; TEMP 36.6–38.2; O2SAT 92–98; BMI 33.1
[2023-08-10 00:44] LABS: Appearance Urine Clear (Clear); Bacteria Urine 3+ /hpf; Bilirubin Urine Negative (Negative); Blood Urine 1+ (Negative); Color Urine Yellow (Yellow); Glucose Urine UA Negative (Negative); Ketones Urine Negative (Negative); Leukocyte Esterase Ur Negative LEU/UL (Negative); Nitrate Urine Negative (Negative); Non Pathogenic Casts 0-2; Protein Urine 2+ mg/dL (Negative); RBC Urine 0-2 /hpf (0-2); Squamous Epithelial Cell Urine None Seen /hpf (Few); WBC Urine 0-5 /hpf (0-3); pH Urine 5.5 (5.0-9.0)
[2023-08-10] MEDS: ACETAMINOPHEN 500 MG TABLET 1000 MG PO (00:47)
[2023-08-10 00:58] LABS: Specific Grav Ur 1.034 (1.001-1.035)
[2023-08-10 00:59] LABS: Add Urine Microscopic? YES
--- NOTE | 2023-08-10 01:37 | ED.GENADULT ---
HPI - General Adult General Chief complaint: Shortness of Breath/Dyspnea Stated complaint: SOB, FEVER, COUGH, SICK X 1 WEEK. Time Seen by Provider: 08/09/23 21:27 History of Present Illness HPI narrative: Patient is a 80-year-old female presents emergency department with chief complaint of shortness of breath nausea vomiting fever chills for the last week. Patient reports she was recently started on prednisone and has multiple family members are sick at home. The patient states that she has not really been able take her medications because she has felt sick and has had a fever and was hypoxic. Related Data Home Medications Medication Instructions Recorded Confirmed aspirin 81 mg tablet,delayed 81 mg PO DAILY 11/05/22 08/07/23 release Allergies Allergy/AdvReac Type Severity Reaction Status Date / Time clarithromycin Allergy Unknown Unknown Verified 08/07/23 14:05 dextromethorphan Allergy Unknown Unknown Verified 08/07/23 14:05 fenofibrate Allergy Unknown Unknown Verified 08/07/23 14:05 guaifenesin Allergy Unknown Anaphylactic Verified 08/07/23 14:05 Shock levofloxacin Allergy Unknown Nausea Verified 08/07/23 14:05 metformin Allergy Unknown Rash Verified 08/07/23 14:05 Review of Systems Review of Systems: A 10 system review of systems was completed on the patient and is negative except for what is stated in the HPI. Nursing and ancillary documentation was reviewed. [facility] Past Medical History Medical History (Updated 08/10/23 @ 06:05 by Vahe Duffy MD) Acute pain of left shoulder Allergic rhinosinusitis Anxiety Arthritis Atherosclerosis of abdominal aorta Breast cancer Breast cancer screening Breast screening Bronchitis Cataracts, bilateral Cellulitis of lower extremity Cellulitis of right lower extremity Chronic kidney disease, stage 3 (moderate) Depression Dermatitis Essential (primary) hypertension GENARO (generalized anxiety disorder) Gastroesophageal reflux disease without esophagitis History of radiation therapy Hypotension Idiopathic gout, unspecified site Injury of left rotator cuff Lumbar spondylosis Major depressive disorder, recurrent, moderate Mixed hyperlipidemia Morbid (severe) obesity due to excess calories Neuropathic pain Osteoarthritis of knees, bilateral Osteoarthritis of right ankle PAD (peripheral artery disease) Post-menopausal Posterior neck pain Postmenopausal Prediabetes RLS (restless legs syndrome) TMJ pain dysfunction syndrome Type 2 diabetes mellitus with diabetic neuropathy, unspecified Type 2 diabetes mellitus with other diabetic kidney complication Surgical History Surgical History History of cataract surgery History of hysterectomy History of lumpectomy of left breast Family History Family History Mother Family history of respiratory disorder, Onset Age: 88 Patient's mother is Father Family history of lung cancer, Onset Age: 93 Other Family history of arthritis Social History Social History Social History: Smoking status: Former smoker Tobacco type: cigarettes Second hand tobacco smoke exposure: No Smoking end date: 05/04/85 Alcohol intake: never Substance use: never Substance use type: does not use Do You Feel Safe in your Home?: Yes Lack of Transportation: No Lack of Food: Never True Current Housing: I Have Housing Concerned About Future Housing: No Difficulty Paying Gas/Electric Bills: No Difficulty Paying for Meds: No Currently Unemployed: YES Education: Don't Know Difficulty w/ Childcare or Family Care: No Living arrangements: with family Occupation/Education: retired Gender identity (if verbalized by the patient): Female Sexual Orientation (if Verbalized by the Patient):
[2023-08-10 01:40] LABS: Reflex Lactic Acid Yes or No Add Lactic
[2023-08-10] MEDS: HEPARIN SODIUM 5,000 UNITS/ML VIAL 4000 UNITS IV PUSH (01:43)
[2023-08-10] MEDS: HEPARIN SOD/D5W 100 UNITS/ML 25,000 UNITS/250 ML BAG 8 UNITS IV CONT (01:44)
--- NOTE | 2023-08-10 03:32 | PM.IMHP ---
H&P: HPI History of Present Illness Date/Time: 08/10/23 03:32 Chief Complaint: cough Narrative: this is an 82-year-old female with past medical history significant for type diabetes mellitus, chronic kidney disease, hypertension, gastroesophageal reflux disease, neuropathic pain, peripheral arterial disease. patient presented to the emergency room due to rigors, cough productive of yellow sputum, poor appetite patient had been sitting in the outpatient setting at her doctor's office who prescribed a course of antibiotics and oral steroids however with no improvement patient got worse. Preliminary workup was significant for troponins x2 4. [address] Scan of the Chest with Contrast: Technique: Contiguous sections were acquired throughout the chest after intravenous administration of 100 cc of Omnipaque 350. Dose reduction technique was used on this scan by utilizing automated exposure control and iterative reconstruction technique. The dose-length product (DLP) was 464.00 mGy-cm. Findings: Shotty mediastinal lymph nodes are frankly enlarged by size criteria. There is no filling defect in the pulmonary arterial tree to suggest pulmonary embolus. There is no evidence of aortic dissection or aneurysm. There is no evidence of pleural or pericardial effusion. There is patchy airspace consolidation in the bilateral lower lobes, lingula, and inferior right upper lobe. There is probable chronic atelectatic change or scarring at the right middle lobe and lingula. Images through the upper abdomen reveal no abnormalities. Impression: No evidence of pulmonary embolus, aortic dissection, or aortic aneurysm. Patchy airspace consolidation bilateral lower lobes and inferior right upper lobe, suspicious for pneumonia. Probable chronic scarring or atelectasis at the lingula and right middle lobe. Portable chest x-ray Comparison: 08/05/2023 Clinical History: Shortness of breath Findings:? There is new consolidation at the left lower lobe and inferior right upper lobe.? Cardiomediastinal silhouette is stable. Bones and soft tissues are unremarkable. ? Impression: ? New patchy consolidation left lower lobe and inferior right upper lobe, suspicious for multifocal pneumonia. Review of Systems Review of Systems: cough productive of yellow sputum, rigors, poor appetite. Constitutional: Constitutional: Reports chills, Reports fatigue, Reports poor appetite and Reports weakness Eyes: Eyes: Denies change in vision ENT: Denies dysphagia, Denies vertigo, Denies dizziness, Reports nasal congestion, Reports nasal discharge and Denies odynophagia Cardiovascular: Cardiovascular: Denies chest pain, Denies leg edema, Denies radiating jaw, neck or arm pain and Denies palpitations Respiratory: Respiratory: Reports change in phlegm color, Reports chest congestion, Reports cough, Reports excessive phlegm production and Reports dyspnea Gastrointestinal: Gastrointestinal: Denies abdominal pain, Denies diarrhea, Denies nausea and Denies vomiting Genitourinary: Genitourinary: Denies dysuria Musculoskeletal: Musculoskeletal: Reports myalgias Integumentary/Breasts: Skin/Breast: Denies rash Neurologic: Denies focal weakness and Denies Sensory deficit (Neuro) Psychiatric: Psychiatric: Reports no additional psychiatric complaints and Reports as per HPI Endocrine: Endocrine: Denies cold intolerance, Denies fatigue, Denies flushing, Denies heat intolerance, Denies polyphagia, Denies polydipsia and Denies palpitations Hematologic/Lymphatic: Hematologic/Lymphatic: Reports no additional hematologic/lymphatic complaints and Reports as per HPI Allergic/Immunologic: Allergic/Immunologic: Reports no additional allergic/immunologic complaints and Reports as per HPI PMFSH Past Medical History Medical History (Updated 08/10/23 @ 17:29 by Isaura Lay DO) Acute pain of left shoulder Allergic rhinosinusitis Anxiety Arthritis Atheroscleros
[2023-08-10 04:24] LABS: Lactic Acid 1.3 mmol/L (0.7-2.0)
[2023-08-10] MEDS: DOXYCYCLINE 100 MG/NS 100 ML 100 MG/100 ML BAG IVPB ×2 (07:03→20:53)
--- NOTE | 2023-08-10 07:15 | PC.NURSE ---
report received from aviation mechanic. waiting bed assignment from imu.
[2023-08-10 08:33] LABS: INR 1.2; Prothrombin Time 15.8 Seconds (11.1-14.7)
[2023-08-10 08:36] LABS: Partial Thromboplastin Time 97.9 Seconds (22.3-36.8)
--- NOTE | 2023-08-10 08:38 | ADMGEN ---
This patient, Adele Knutson, was admitted to IMU Room 207-01. @ 0820. A/O x3. O2 on 4l/nc cnf192%. IV heparin 8 cc/nc=286qthtf hr. Patient/ oriented to hospital policies and general routines including ID bracelet, bed and alarms, visiting hours, pain management, procedures, bathroom and other care routines, personal items, smoking policy, room service/diet, and visiting hours. Information on how to activate the Rapid Response Team has been discussed. Patient encouraged to report perceived risks to care and to ask questions if they do not understand what they are told or what they should do.
--- NOTE | 2023-08-10 09:31 | PC.NURSE ---
daughter to bring in list of pt's home medications @ 1100 today
[2023-08-10 11:41] LABS: Basophils Percent Auto 0.2 % (0.2-1.2); Hematocrit 37.2 % (37.0-47.0); Hemoglobin 11.6 g/dL (12.0-15.0); Immature Granulocyte Absolute 0.07 K/mm3 (0.00-0.031); Immature Granulocyte Percent A 0.5 % (0-0.5); Lymphocytes Percent Auto 19.6 % (18.3-44.2); Mean Corpuscular HGB Conc 31.2 g/dl (32-36); Mean Corpuscular Hemoglobin 30.2 pg (26-34); Mean Corpuscular Volume 96.9 fl (80-100); Mean Platelet Volume 9.4 fl (7.4-10.4); Monocytes Absolute Auto 1.6 K/mm3 (0.1-0.6); Monocytes Percent Auto 11.3 % (2.6-8.5); Neutrophils Absolute Auto 9.8 K/mm3 (1.3-6.7); Neutrophils Percent Auto 68.4 % (45.5-73.1); Platelet Count Result 219 k/mm3 (150-375); Red Blood Count 3.84 M/mm3 (4.2-5.4); Red Cell Distribution Width 12.9 % (11.5-14.5); White Blood Count 14.3 K/mm3 (4.5-10.0)
[2023-08-10] MEDS: ACETAMINOPHEN 325 MG TABLET 650 MG PO ×2 (12:24→21:06)
[2023-08-10] MEDS: ASPIRIN 81 MG CHEWABLE TABLET PO (12:25)
--- NOTE | 2023-08-10 13:22 | PM.CNCAR ---
Assessment and Plan Assessment and plan (1) Pneumonia: Code(s): J18.9 - Pneumonia, unspecified organism Status: Acute (2) Elevated troponin: Code(s): R79.89 - Other specified abnormal findings of blood chemistry Status: Acute Plan This is an 82-year-old lady who appears to have a febrile respiratory illness, probably a viral pneumonia and has elevated troponin levels. There is no clinical evidence that I can see with the she has an acute coronary syndrome and so this likely represents a viral myocarditis. I am going to stop her intravenous have and obtain an echocardiogram to assess left ventricular systolic function. Further recommendations will be pending the echo findings but at this point I do not feel compelled to bring this lady to the slab puller under these circumstances Roly Agarwal MD [facility] History of Present Illness History of Present Illness Consult date/time: 08/10/23 13:22 Reason For Visit: Pneumonia, NSTEMI Narrative: At this is a very pleasant 82-year-old lady I am seeing this afternoon at the request of the hospitalist because of elevated troponin levels. The patient is not known to me prior to this encounter and she reports no previous history of heart disease. She came to the hospital through the emergency room last evening because of symptoms she was sound like a respiratory infection. She has been ill for about a week or 2 with symptoms of coughing bringing up thick green, sometimes yellow sputum she describes having had a fever but no shaking chills or rigors. Because of ongoing symptoms like this she went to see her primary care provider who placed her on some steroids and some antibiotics she was not feeling any better so she came to the emergency room. She describes no symptoms chest pain pressure or heaviness for reasons that are not entirely clear to me troponin levels were sampled and they are significantly elevated in the range of 4.0. I do not see a rising and falling pattern going on the electrocardiogram showed sinus rhythm with some nonspecific ST segment abnormality in the inferior leads but no significant current of injury. In this setting I am seeing her in consultation. She is receiving an intravenous heparin infusion and she is being held NPO presumably for the possibility of having a coronary angiogram performed. She S otherwise visiting with her daughter and does not have any other symptoms at this time. She was febrile upon admission and she did have a leukocytosis as well. Her chest x-ray looks again nodular multilobe pneumonia. Review of Systems Constitutional: Constitutional: Reports no additional constitutional complaints Eyes: Eyes: Reports no additional eye complaints ENT: Reports system reviewed and no additional complaints, except as documented Cardiovascular: Cardiovascular: Reports no additional cardiovascular complaints Respiratory: Respiratory: Reports as per HPI and Reports cough Comments: Productive cough as detailed in the HPI Gastrointestinal: Gastrointestinal: Reports no additional gastrointestinal complaints Musculoskeletal: Musculoskeletal: Reports no additional musculoskeletal complaints Integumentary/Breasts: Skin/Breast: Reports system reviewed and no additional complaints, except as docu Neurologic: Reports system reviewed and no additional complaints, except as documented Endocrine: Endocrine: Reports no additional endocrine complaints Hematologic/Lymphatic: Hematologic/Lymphatic: Reports no additional hematologic/lymphatic complaints Allergic/Immunologic: Allergic/Immunologic: Reports no additional allergic/immunologic complaints [facility] Past Medical History Medical History (Updated 08/10/23 @ 13:28 by Roly Agarwal MD) Acute pain of left shoulder Allergic rhinosinusitis Anxiety Arthritis Atherosclerosis of abdominal aorta Breast cancer Breast cancer screening Breast screening Bronchitis Cataracts, bi
[2023-08-10 16:47] LABS: Partial Thromboplastin Time 39.8 Seconds (22.3-36.8)
--- NOTE | 2023-08-10 17:23 | PM.IMPN ---
Progress Note: A&P Assessment and Plan (1) Acute non-ST elevation myocardial infarction (NSTEMI): Code(s): I21.4 - Non-ST elevation (NSTEMI) myocardial infarction Status: Acute (2) Pneumonia: Code(s): J18.9 - Pneumonia, unspecified organism Status: Acute (3) Elevated troponin: Code(s): R79.89 - Other specified abnormal findings of blood chemistry Status: Acute (4) Viral myocarditis: Code(s): B33.22 - Viral myocarditis Status: Acute Plan # viral myocarditis, elevated troponin # community-acquired pneumonia possibly viral, multifocal PNA - patient has sick contacts, with sputum production likely a pneumonia. chest x-rays consistent with left lower lobe and inferior right upper lobe multifocal infiltrate -antibiotics: Rocephin, doxycycline - Tessalon Perles for cough - blood cultures pending - significant elevated troponin peaking at 4.7 - appreciate cardiology consultation: likely viral myocarditis without clinical ACS evidence - echocardiogram ordered - continue monitoring on telemetry -heparin drip discontinued # chronic conditions -hyperlipidemia: Crestor , Zetia, aspirin - essential hypertension: Lisinopril, atenolol - peripheral neuropathy: Gabapentin -depression: Prozac , p.r.n. Valium - gout: Allopurinol - peripheral edema: Holding Lasix - GERD: Continue Protonix Diet: heart healthy diet DVT prophylaxis: off heparin drip, will give subQ Lovenox Code status: Full code Disposition: Likely home in 2-3 days pending PT eval Time Spent With Patient Time: 35 minutes Subjective Date/time seen: 08/10/23 17:23 Interval history: Patient admitted overnight with elevated troponin. patient recently exposed to a virus from her daughter has been going around the family. She saw her PCP who believes she may have had crackles in her lungs and was prescribed prednisone. She returns now to the ED for further evaluation with fever, cough, shortness of breath. Patient has significant elevated troponin peaking at 4.75 however did not have any typical chest pain. she seen by Cardiology who believes she may have a viral myocarditis. patient complains of cough Review of Systems Review of Systems: 10 point ROS complete, negative other than what is specified in HPI. Exam Narrative: - GENERAL: pleasant elderly woman no acute distress. Well-nourished. - EYES: EOMI. Anicteric. - HENT: Moist mucous membranes. - LUNGS: coarse lung sounds anteriorly, diffuse rhonchi - CARDIOVASCULAR: Regular rate and rhythm. No murmur. No JVD. - ABDOMEN: Soft, non-tender and non-distended. No palpable masses. - EXTREMITIES: No edema. Peripheral pulses 2+. Non-tender. - NEUROLOGIC: No focal neurological deficits. CN II-XII grossly intact. - PSYCHIATRIC: Awake, Alert and oriented x 3. Appropriate mood and affect. - SKIN: No rashes or lesions. Warm. - LYMPH: No cervical lymphadenopathy. Objective Data Vital Signs Vital Signs: Vital Signs - 24 hr 08/09/23 21:23 08/09/23 21:32 08/09/23 22:26 Temperature 37.7 C H Pulse Rate 93 91 Respiratory Rate 25 H 23 H Blood Pressure 197/94 H 177/84 H Pulse Oximetry 88 L 93 94 Oxygen Delivery Room Air Nasal Cannula Oxygen Flow Rate 2 08/09/23 21:56 08/09/23 21:56 08/09/23 22:03 Temperature Pulse Rate 91 90 Respiratory Rate 22 H 26 H Blood Pressure Pulse Oximetry 94 Oxygen Delivery Nasal Cannula Oxygen Flow Rate 2 08/10/23 00:31 08/10/23 01:15 08/09/23 21:34 Temperature 38.2 C H 37.1 C Pulse Rate 90 88 Respiratory Rate 19 21 H Blood Pressure 146/66 H Pulse Oximetry 94 95 Oxygen Delivery Oxygen Flow Rate 08/09/23 21:46 08/09/23 21:47 08/09/23 22:07 Temperature Pulse Rate 89 89 89 Respiratory Rate 24 H 25 H 25 H Blood Pressure 183/87 H Pulse Oximetry 92 92 96 Oxygen Delivery Oxygen Flow Rate 08/09/23 22:15 08/09/23 22:31 08/09/23 22:45 Temperature Pulse Rat
[2023-08-10] MEDS: lisinopriL 5 MG TABLET PO (17:31)
[2023-08-10] MEDS: GABAPENTIN 300 MG CAPSULE PO (17:31)
[2023-08-10] MEDS: BENZONATATE 100 MG CAPSULE 200 MG PO (21:06)
[2023-08-10] MEDS: ALBUTEROL SULFATE (*SP) AEROSOL 1 PUFF INHALATION (21:58)
[2023-08-11] VITALS (17 sets, daily range): BP systolic 113–161; BP diastolic 42–65; PULSE 69–90; RESP 17–23; TEMP 36.4–37.5; O2SAT 91–99
--- NOTE | 2023-08-11 | ECHO_ITS ---
Patient Info Name: Adele Knutson Age: 82 years : 1940 Gender: Female Ht: 64 in Wt: 193 lbs BSA: 2.02 m2 HR: 88 bpm BP: 161 / 64 mmHg Heart Rhythm: Sinus Rhythm Technical Quality: Good Exam Date: 08/11/2023 9:24 AM Exam Location: Echo Lab Patient Status: Inpatient Admit Date: 08/10/2023 Staff Ordering Physician: Roly Agarwal MD Resource Management Specialist: Aliza Moy RDCS Attending Provider: Shannon Vargas MD Referring Physician: Stefano KOENIG; Exam Type: CA echo doppler color flow Study Info Complete two-dimensional, color flow and Doppler transthoracic echocardiogram is performed. Strain analysis performed. Summary 1. Complete two-dimensional, color flow and Doppler transthoracic echocardiogram is performed. 2. Left ventricular chamber dimension is normal. 3. Left ventricular systolic function is normal, estimated at 60-65%. 4. The left ventricular diastolic function is grade II diastolic dysfunction. 5. Right ventricular systolic function is normal. 6. Left atrial chamber dimension is moderately enlarged. 7. Right atrial chamber dimension is moderately enlarged. 8. There is severe aortic valve calcification. 9. There is mild aortic valve stenosis. 10. There is moderate mitral valve regurgitation. 11. There is mild to moderate tricuspid valve regurgitation. 12. There is mild pulmonic regurgitation. 13. Pulmonary hypertension. Estimated pulmonary arterial systolic pressure is 50 mmHg. Left Ventricle Left ventricular chamber dimension is normal. Left ventricular systolic function is normal, estimated at 60-65%. There is no increased left ventricular wall thickness. The left ventricular diastolic function is grade II diastolic dysfunction. Global longitudinal strain is abnormal at -14 %. Right Ventricle Right ventricular chamber dimension is normal. Right ventricular systolic function is normal. Left Atria Left atrial chamber dimension is moderately enlarged. Right Atria Right atrial chamber dimension is moderately enlarged. Atrial Septum Intact interatrial septum visualized by color flow imaging. Aortic Valve The aortic valve is probable trileaflet. There is mild aortic valve stenosis. There is no aortic valve regurgitation. There is severe aortic valve calcification. Pulmonic Valve The pulmonic valve is not well visualized. There is mild pulmonic regurgitation. Mitral Valve There is moderate mitral valve regurgitation. The mitral valve annulus is moderately calcified. Tricuspid Valve There is mild to moderate tricuspid valve regurgitation. Pulmonary hypertension. Estimated pulmonary arterial systolic pressure is 50 mmHg. Inferior Vena Cava Normal inferior vena cava with >50% collapse upon inspiration consistent with normal right atrial pressure, 3 mmHg. Aorta The aortic root size at the sinus of Valsalva is normal. Left Ventricular Outflow Tract Name Value Normal LVOT 2D LVOT Diameter 2.0 cm LVOT Doppler LVOT Peak Gradient 5 mmHg LVOT Mean Gradient 3 mmHg LVOT VTI 20 cm LVOT VTI/AV VTI Ratio 0.5 LVOT Stroke Volume
[2023-08-11 04:46] LABS: Basophils Percent Auto 0.3 % (0.2-1.2); Eosinophils Percent Auto 0.2 % (0-4.4); Hemoglobin 10.8 g/dL (12.0-15.0); Immature Granulocyte Absolute 0.08 K/mm3 (0.00-0.031); Immature Granulocyte Percent A 0.7 % (0-0.5); Lymphocytes Absolute Auto 2.11 K/mm3 (0.9-3.2); Lymphocytes Percent Auto 18.9 % (18.3-44.2); Mean Corpuscular HGB Conc 30.9 g/dl (32-36); Mean Corpuscular Hemoglobin 29.8 pg (26-34); Mean Corpuscular Volume 96.7 fl (80-100); Mean Platelet Volume 9.5 fl (7.4-10.4); Monocytes Absolute Auto 0.9 K/mm3 (0.1-0.6); Monocytes Percent Auto 8.4 % (2.6-8.5); Neutrophils Percent Auto 71.5 % (45.5-73.1); Platelet Count Result 201 k/mm3 (150-375); Red Blood Count 3.62 M/mm3 (4.2-5.4); Red Cell Distribution Width 12.8 % (11.5-14.5); White Blood Count 11.1 K/mm3 (4.5-10.0)
[2023-08-11 04:54] LABS: Anion Gap 7 mmol/L (4-12); Blood Urea Nitrogen 31 mg/dL (7-17); Carbon Dioxide 29 mmol/L (22-30); Chloride 100 mmol/L (98-107); Estimated CRCL calculation 38 ml/min; Estimated Glomerular Filt Rate 48; Glucose 96 mg/dL (65-110); Potassium 4.1 mmol/L (3.4-5.0); Sodium 136 mmol/L (137-145)
[2023-08-11] MEDS: ACETAMINOPHEN/CODEINE (*CRX) 300/30 MG TABLET 1 TAB PO (05:28)
--- NOTE | 2023-08-11 07:18 | PC.NURSE ---
Left message for pt's daughter, Emilee, that pt was moved to a different room and to call IMU for further details.
[2023-08-11] MEDS: FLUoxetine HCL 20 MG CAPSULE PO (08:59)
[2023-08-11] MEDS: EZETIMIBE 10 MG TABLET PO (08:59)
[2023-08-11] MEDS: allopurinoL 100 MG TABLET PO (08:59)
[2023-08-11] MEDS: PANTOPRAZOLE 40 MG TABLET PO (08:59)
[2023-08-11] MEDS: ENOXAPARIN 40 MG/0.4 ML SYRINGE SUB-Q (09:00)
[2023-08-11] MEDS: ASPIRIN 81 MG ENTERIC TABLET PO (09:00)
[2023-08-11] MEDS: GABAPENTIN 300 MG CAPSULE PO (09:00)
[2023-08-11] MEDS: ROSUVASTATIN 20 MG TABLET BY MOUTH (09:00)
[2023-08-11] MEDS: atenoloL 50 MG TABLET 100 MG PO (09:00)
[2023-08-11] MEDS: DOXYCYCLINE 100 MG/NS 100 ML 100 MG/100 ML BAG IVPB ×2 (09:01→21:28)
--- NOTE | 2023-08-11 13:48 | PM.PNCARD ---
Progress Note: A&P Assessment and Plan (1) Pneumonia: Code(s): J18.9 - Pneumonia, unspecified organism Status: Acute Assessment and Plan: On antibiotics as per primary team. (2) Elevated troponin: Code(s): R79.89 - Other specified abnormal findings of blood chemistry Status: Acute Assessment and Plan: This is an 82-year-old lady who appears to have a febrile respiratory illness, probably a viral pneumonia and has elevated troponin levels.? There is no clinical evidence that I can see with the she has an acute coronary syndrome and so this likely represents a viral myocarditis. Further recommendations will be made pending the echo findings but at this point I do not feel compelled to bring this lady to the kil[facility] labou[facility] under these?circumstances (3) Essential (primary) hypertension: Code(s): I10 - Essential (primary) hypertension Status: Acute Assessment and Plan: Stable, continue home antihypertensive regimen. Subjective Date/time seen: 08/11/23 13:48 Interval history: Reason for visit: Elevated troponin HPI: This is a very pleasant 82-year-old lady I am seeing this afternoon at the request of the hospitalist because of elevated troponin levels.? The patient is not known to me prior to this encounter and she reports no previous history of heart disease.? She came to the hospital through the emergency room last evening because of symptoms she was sound like a respiratory infection.? She has been ill for about a week or 2 with symptoms of coughing bringing up thick green, sometimes yellow sputum she describes having had a fever but no shaking chills or rigors.? Because of ongoing symptoms like this she went to see her primary care provider who placed her on some steroids and some antibiotics she was not feeling any better so she came to the emergency room.? She describes no symptoms chest pain pressure or heaviness for reasons that are not entirely clear to me troponin levels were sampled and they are significantly elevated in the range of 4.0.? I do not see a rising and falling pattern going on the electrocardiogram showed sinus rhythm with some nonspecific ST segment abnormality in the inferior leads but no significant current of injury.? In this setting I am seeing her in consultation.? She is receiving an intravenous heparin infusion and she is being held NPO presumably for the possibility of having a coronary angiogram performed.? She is otherwise visiting with her daughter and does not have any other symptoms at this time.? She was febrile upon admission and she did have a leukocytosis as well.? Her chest x-ray looks again nodular multilobe pneumonia. Date of service 08/10: Feeling well. No chest pain. Tele stable. Review of Systems Review of Systems: All systems reviewed & are unremarkable except as noted in HPI and below (HPI) Exam Const: General: no acute distress HENMT: Mouth: Yes moist mucous membranes Eyes: General: appearance normal, both eyes and all related structures Sclera: sclerae normal Resp: Effort & Inspection: normal respiratory effort Cardio: Rate: regular rate Rhythm: regular rhythm Skin: General skin exam: normal color Neuro: Speech: normal speech Psych: Mental Status: mental status grossly normal Affect: normal affect Objective Data Vital Signs Vital Signs: Vital Signs - 24 hr 08/10/23 16:00 08/10/23 18:27 08/10/23 20:00 Temperature 37.7 C H 36.6 C Pulse Rate 69 73 Respiratory Rate 20 20 Blood Pressure 111/45 L 156/60 H Pulse Oximetry 96 95 97 Oxygen Delivery Nasal Cannula Oxygen Flow Rate 3 08/10/23 14:00 08/10/23 16:00 08/10/23 16:00 Temperature Pulse Rate 85 70 Respiratory Rate Blood Pressure Pulse Oximetry 95 Oxygen Delivery Nasal Cannula Oxygen Flow Rate 3 08/10/23 18:00 08/10/23 20:00 08/10/23 22:01 Temperature Pulse Rate 84 88 Respiratory Rate 24 H Blood Pressure Pulse Oximetr
[2023-08-11] MEDS: lisinopriL 5 MG TABLET PO (17:00)
--- NOTE | 2023-08-11 17:04 | PM.IMPN ---
Progress Note: A&P Assessment and Plan (1) Viral myocarditis: Code(s): B33.22 - Viral myocarditis Status: Acute (2) Elevated troponin: Code(s): R79.89 - Other specified abnormal findings of blood chemistry Status: Acute (3) Pneumonia: Code(s): J18.9 - Pneumonia, unspecified organism Status: Acute (4) Pneumonia: Code(s): J18.9 - Pneumonia, unspecified organism Status: Acute Plan # viral myocarditis, elevated troponin # community-acquired pneumonia possibly viral, multifocal PNA - patient has sick contacts, with sputum production likely a pneumonia.? chest x-rays consistent with left lower lobe and inferior right upper lobe multifocal infiltrate -antibiotics: Rocephin,? doxycycline - Tessalon Perles for cough - blood cultures NGTD - significant elevated troponin peaking at 4.7 - appreciate cardiology consultation:? likely viral myocarditis without clinical ACS evidence - echocardiogram: LVEF 60-65%, grade 2 diastolic dysfunction - continue monitoring on telemetry -heparin drip discontinued # chronic conditions -hyperlipidemia: Crestor, Zetia, aspirin - essential hypertension: Lisinopril,? atenolol - peripheral neuropathy:? Gabapentin -depression:? Prozac, p.r.n. Valium - gout: Allopurinol - peripheral edema: Holding Lasix - GERD: Continue Protonix Diet:?heart healthy diet DVT prophylaxis:??off heparin drip, will give subQ Lovenox Code status:?Full code Disposition:? Likely home in 1-3 days pending PT eval, downgrade from IMU to med tele Subjective Date/time seen: 08/11/23 17:04 Interval history: Patient seen examined. She appears to be doing better today. Labs are improving. Echocardiogram done today. She denies fever, chills, nausea vomiting, diarrhea. Cardiology evaluated echocardiogram normal EF with no wall motion abnormality. Review of Systems Review of Systems: 10 point ROS complete, negative other than what is specified in HPI. Exam Narrative: - GENERAL: ? pleasant elderly woman no acute distress - EYES: EOMI. Anicteric. - HENT: Moist mucous membranes. - LUNGS:? coarse lung sounds anteriorly, diffuse rhonchi - CARDIOVASCULAR: Regular rate and rhythm. No murmur. No JVD. - ABDOMEN: Soft, non-tender and non-distended. No palpable masses. - EXTREMITIES: No edema. Peripheral pulses 2+. Non-tender. - NEUROLOGIC: No focal neurological deficits. CN II-XII grossly intact. - PSYCHIATRIC: Awake, Alert and oriented x 3. Appropriate mood and affect. - SKIN: No rashes or lesions. Warm. - LYMPH: No cervical lymphadenopathy.? Objective Data Vital Signs Vital Signs: Vital Signs - 24 hr 08/10/23 18:27 08/10/23 20:00 08/10/23 18:00 Temperature 36.6 C Pulse Rate 73 84 Respiratory Rate 20 Blood Pressure 156/60 H Pulse Oximetry 95 97 Oxygen Delivery Nasal Cannula Oxygen Flow Rate 3 08/10/23 20:00 08/10/23 22:01 08/10/23 22:02 Temperature Pulse Rate 88 Respiratory Rate 24 H Blood Pressure Pulse Oximetry 97 94 Oxygen Delivery Nasal Cannula Nasal Cannula Oxygen Flow Rate 3 3 08/10/23 20:00 08/10/23 22:00 08/11/23 00:00 Temperature Pulse Rate 76 81 Respiratory Rate Blood Pressure Pulse Oximetry 94 Oxygen Delivery Nasal Cannula Oxygen Flow Rate 3 08/11/23 00:11 08/11/23 00:00 08/11/23 02:00 Temperature 36.4 C Pulse Rate 81 77 85 Respiratory Rate 23 H Blood Pressure 129/50 L Pulse Oximetry 93 Oxygen Delivery Oxygen Flow Rate 08/11/23 04:00 08/11/23 04:00 08/11/23 04:50 Temperature 37.2 C Pulse Rate 90 89 Respiratory Rate 17 Blood Pressure 161/64 H Pulse Oximetry 96 99 Oxygen Delivery Nasal Cannula Oxygen Flow Rate 3 08/11/23 06:00 08/11/23 08:00 08/11/23 09:00 Temperature 37.3 C Pulse Rate 80 85 84 Respiratory Rate 20 Blood Pressure 132/51 L Pulse Oximetry 94 Oxygen Delivery Oxygen Flow Rate 08/11/23 10:35 08/11/23 08:00
[2023-08-11 19:11] LABS: Hematocrit 31.9 % (37.0-47.0); Hemoglobin 10.3 g/dL (12.0-15.0); Mean Corpuscular HGB Conc 32.3 g/dl (32-36); Mean Corpuscular Hemoglobin 30.3 pg (26-34); Mean Corpuscular Volume 93.8 fl (80-100); Mean Platelet Volume 9.5 fl (7.4-10.4); Platelet Count Result 196 k/mm3 (150-375); White Blood Count 11.2 K/mm3 (4.5-10.0)
[2023-08-11 19:20] LABS: Anion Gap 5 mmol/L (4-12); Blood Urea Nitrogen 30 mg/dL (7-17); Calcium 8.6 mg/dL (8.4-10.2); Carbon Dioxide 27 mmol/L (22-30); Chloride 100 mmol/L (98-107); Estimated CRCL calculation 38 ml/min; Estimated Glomerular Filt Rate 48; Glucose 97 mg/dL (65-110); Potassium 3.6 mmol/L (3.4-5.0); Sodium 132 mmol/L (137-145)
[2023-08-11] MEDS: BENZONATATE 100 MG CAPSULE 200 MG PO (21:29)
[2023-08-11] MEDS: ACETAMINOPHEN 325 MG TABLET 650 MG PO (21:29)
[2023-08-11] MEDS: ALBUTEROL SULFATE (*SP) AEROSOL 1 PUFF INHALATION (21:29)
[2023-08-12] VITALS (13 sets, daily range): BP systolic 129–163; BP diastolic 49–63; PULSE 60–75; RESP 18–24; TEMP 36.1–37.5; O2SAT 92–94
[2023-08-12] MEDS: atenoloL 50 MG TABLET 100 MG PO (08:52)
[2023-08-12] MEDS: EZETIMIBE 10 MG TABLET PO (08:52)
[2023-08-12] MEDS: ENOXAPARIN 40 MG/0.4 ML SYRINGE SUB-Q (08:52)
[2023-08-12] MEDS: DOXYCYCLINE 100 MG/NS 100 ML 100 MG/100 ML BAG IVPB (08:52)
[2023-08-12] MEDS: ROSUVASTATIN 20 MG TABLET BY MOUTH (08:53)
[2023-08-12] MEDS: GABAPENTIN 300 MG CAPSULE PO (08:53)
[2023-08-12] MEDS: FLUoxetine HCL 20 MG CAPSULE PO (08:53)
[2023-08-12] MEDS: PANTOPRAZOLE 40 MG TABLET PO (08:53)
[2023-08-12] MEDS: allopurinoL 100 MG TABLET PO (08:53)
[2023-08-12] MEDS: BENZONATATE 100 MG CAPSULE 200 MG PO ×2 (13:05→16:47)
--- NOTE | 2023-08-12 13:34 | PM.IMPN ---
Progress Note: A&P Assessment and Plan (1) Viral myocarditis: Code(s): B33.22 - Viral myocarditis Status: Acute (2) Elevated troponin: Code(s): R79.89 - Other specified abnormal findings of blood chemistry Status: Acute (3) Pneumonia: Code(s): J18.9 - Pneumonia, unspecified organism Status: Acute (4) Pneumonia: Code(s): J18.9 - Pneumonia, unspecified organism Status: Acute Plan # viral myocarditis, elevated troponin # community-acquired pneumonia possibly viral, multifocal PNA - patient has sick contacts, with sputum production likely a pneumonia.? chest x-rays consistent with left lower lobe and inferior right upper lobe multifocal infiltrate -antibiotics: transtion Rocephin, doxycycline to p.o. Augmentin and doxycycline to complete 5 day course - Tessalon Perles for cough - appreciate cardiology consultation:? likely viral myocarditis without clinical ACS evidence - echocardiogram: LVEF 60-65%, grade 2 diastolic dysfunction # chronic conditions -hyperlipidemia: Crestor, Zetia, aspirin - essential hypertension: Lisinopril,? atenolol - peripheral neuropathy:? Gabapentin -depression:? Prozac, p.r.n. Valium - gout: Allopurinol - peripheral edema: Holding Lasix - GERD: Continue Protonix Diet:?heart healthy diet DVT prophylaxis:??Lovenox Code status:?Full code Disposition:? home in 1-2 days pending PT eval, downgrade to med surg Subjective Date/time seen: 08/12/23 13:34 Interval history: Patient seen examined. She is doing well no new complaints. patient lost IV access. We will transition to p.o. antibiotics and may avoid IV. anticipate discharge soon. Patient denies fever, chills, nausea vomiting, diarrhea, chest pain, shortness a breath. Review of Systems Review of Systems: 10 point ROS complete, negative other than what is specified in HPI. Exam Narrative: - GENERAL: ? pleasant elderly woman no acute distress - EYES: EOMI. Anicteric. - HENT: Moist mucous membranes. - LUNGS:? Clear to auscultation, improvement of aeration - CARDIOVASCULAR: Regular rate and rhythm. No murmur. No JVD. - ABDOMEN: Soft, non-tender and non-distended. No palpable masses. - EXTREMITIES: No edema. Peripheral pulses 2+. Non-tender. - NEUROLOGIC: No focal neurological deficits. CN II-XII grossly intact. - PSYCHIATRIC: Awake, Alert and oriented x 3. Appropriate mood and affect. - SKIN: No rashes or lesions. Warm. - LYMPH: No cervical lymphadenopathy.? Objective Data Vital Signs Vital Signs: Vital Signs - 24 hr 08/11/23 16:00 08/11/23 16:00 08/11/23 14:00 Temperature 37.5 C Pulse Rate 72 73 Respiratory Rate 20 Blood Pressure 119/42 L Pulse Oximetry 94 94 Oxygen Delivery Nasal Cannula Oxygen Flow Rate 2 08/11/23 16:00 08/11/23 18:00 08/11/23 21:29 Temperature Pulse Rate 69 73 76 Respiratory Rate 20 Blood Pressure Pulse Oximetry Oxygen Delivery Oxygen Flow Rate 08/11/23 23:44 08/11/23 20:00 08/11/23 20:00 Temperature 36.6 C Pulse Rate 71 72 Respiratory Rate 18 Blood Pressure 113/49 L Pulse Oximetry 93 96 Oxygen Delivery Nasal Cannula Oxygen Flow Rate 2 08/11/23 22:00 08/12/23 00:00 08/12/23 02:00 Temperature Pulse Rate 72 68 60 Respiratory Rate Blood Pressure Pulse Oximetry Oxygen Delivery Oxygen Flow Rate 08/12/23 03:37 08/12/23 04:00 08/12/23 06:00 Temperature 36.6 C Pulse Rate 62 61 66 Respiratory Rate 19 Blood Pressure 129/49 L Pulse Oximetry 94 Oxygen Delivery Oxygen Flow Rate 08/12/23 08:00 08/12/23 08:52 08/12/23 08:00 Temperature 36.2 C L Pulse Rate 72 72 75 Respiratory Rate 20 Blood Pressure 148/62 H Pulse Oximetry 94 Oxygen Delivery Oxygen Flow Rate 08/12/23 10:00 08/12/23 08:00 08/12/23 12:14 Temperature 36.1 C L Pulse Rate 68 71 Respiratory Rate 20 Blood Pressure 158/63 H Pulse Oximetry 94 93 Oxygen De
[2023-08-12] MEDS: ACETAMINOPHEN/CODEINE (*CRX) 300/30 MG TABLET 1 TAB PO (16:47)
[2023-08-12] MEDS: DOXYCYCLINE HYCLATE 100 MG TABLET PO (17:16)
[2023-08-12] MEDS: lisinopriL 5 MG TABLET PO (17:16)
--- NOTE | 2023-08-12 20:32 | PC.NURSE ---
This patient, Adele Knutson, was transferred to [[facility] Medical room 252 ] on 08/12/23 at 2032. Personal belongings sent with patient. Report given to [MELANIA Hanna ]. Appropriate documentation sent with patient.
--- NOTE | 2023-08-12 20:35 | PC.NURSE ---
Notified pt's daughter, Emilee [phone], that pt is transferring to room 252.
[2023-08-12] MEDS: ACETAMINOPHEN 325 MG TABLET 650 MG PO (23:34)
[2023-08-13] VITALS (10 sets, daily range): BP systolic 176; BP diastolic 72; PULSE 63–86; RESP 16; TEMP 36.6; O2SAT 86–96
[2023-08-13] MEDS: DOXYCYCLINE HYCLATE 100 MG TABLET PO (05:50)
[2023-08-13 06:26] LABS: Hematocrit 33.6 % (37.0-47.0); Hemoglobin 10.5 g/dL (12.0-15.0); Mean Corpuscular HGB Conc 31.3 g/dl (32-36); Mean Corpuscular Hemoglobin 29.9 pg (26-34); Mean Corpuscular Volume 95.7 fl (80-100); Mean Platelet Volume 9.6 fl (7.4-10.4); Platelet Count Result 231 k/mm3 (150-375); Red Blood Count 3.51 M/mm3 (4.2-5.4); Red Cell Distribution Width 12.7 % (11.5-14.5); White Blood Count 7.4 K/mm3 (4.5-10.0)
[2023-08-13 06:48] LABS: Anion Gap 7 mmol/L (4-12); Blood Urea Nitrogen 31 mg/dL (7-17); Calcium 9.3 mg/dL (8.4-10.2); Carbon Dioxide 26 mmol/L (22-30); Chloride 105 mmol/L (98-107); Estimated CRCL calculation 38 ml/min; Estimated Glomerular Filt Rate 48; Glucose 95 mg/dL (65-110); Magnesium 2.2 mg/dL (1.6-2.3); Potassium 3.3 mmol/L (3.4-5.0); Sodium 138 mmol/L (137-145)
[2023-08-13] MEDS: ACETAMINOPHEN 325 MG TABLET 650 MG PO (08:37)
[2023-08-13] MEDS: atenoloL 50 MG TABLET 100 MG PO (08:39)
[2023-08-13] MEDS: ROSUVASTATIN 20 MG TABLET BY MOUTH (08:42)
[2023-08-13] MEDS: AMOXICILLIN/CLAVULANATE K 875-125 MG TAB 1 TABLET PO (08:42)
[2023-08-13] MEDS: GABAPENTIN 300 MG CAPSULE PO (08:42)
[2023-08-13] MEDS: FLUoxetine HCL 20 MG CAPSULE PO (08:42)
[2023-08-13] MEDS: EZETIMIBE 10 MG TABLET PO (08:42)
[2023-08-13] MEDS: ENOXAPARIN 40 MG/0.4 ML SYRINGE SUB-Q (08:43)
[2023-08-13] MEDS: allopurinoL 100 MG TABLET PO (08:43)
[2023-08-13] MEDS: PANTOPRAZOLE 40 MG TABLET PO (08:43)
[2023-08-13] MEDS: ASPIRIN 81 MG ENTERIC TABLET PO (09:58)
--- NOTE | 2023-08-13 11:50 | HOMEO2EVAL ---
Evaluation was performed at [facility] Home Oxygen Evaluation RC: Home Oxygen (O2) Evaluation Start: 08/13/23 09:12 Freq: ONCE Status: Active Protocol: RPE Activity Type Activity Date Activity User E-sign Co-sign Detail Recorded Client Recorded Date Recorded By Document 08/13/23 11:20 [email or web address] [email or web address] 08/13/23 11:50 DJO Document 08/13/23 11:25 [email or web address] [email or web address] 08/13/23 11:50 DJO Document 08/13/23 11:30 [email or web address] [email or web address] 08/13/23 11:50 DJO Document 08/13/23 11:35 [email or web address] [email or web address] 08/13/23 11:50 DJO Document 08/13/23 11:50 [email or web address] [email or web address] 08/13/23 11:50 DJO 08/13/23 08/13/23 08/13/23 11:20 11:25 11:30 Home O2 Evaluation [Oxygen] -Test Phase Resting Exercise Exercise -Oxygen Delivery Room Air Room Air Nasal Cannula -Oxygen Flow Rate (L/min) 1 [Pulse Oximetry] -Pulse Oximetry (90-100 %) 90 86 L 88 L [Pulse Rate] -Pulse Rate (60-100 beats/min) 63 82 85 [Evaluation] -Activity Tolerance [Charges] -Evaluation Charges O2 Evaluation by Pulmonary 08/13/23 08/13/23 11:35 11:50 Home O2 Evaluation [Oxygen] -Test Phase Exercise Resting -Oxygen Delivery Nasal Cannula Room Air -Oxygen Flow Rate (L/min) 2 [Pulse Oximetry] -Pulse Oximetry (90-100 %) 91 91 [Pulse Rate] -Pulse Rate (60-100 beats/min) 86 65 [Evaluation] -Activity Tolerance Fair [Charges] -Evaluation Charges
--- NOTE | 2023-08-13 11:58 | PCRCNOTE ---
HOME O2 EVAL COMPLETE, 2L WITH ACTIVITY. SET UP WITH [employer] [place]. PHONE NUMBER [phone] TANK IN ROOM FOR DISCHARGE
--- NOTE | 2023-08-13 12:51 | PC.NURSE ---
On 08/13/23, the student, [Layne Boss], provided care and completed [facility] on [facility]. I have reviewed the student's documentation and agree with the findings.
--- NOTE | 2023-08-13 13:47 | PC.NURSE ---
On 08/13/23, the student, [Layne Boss], provided care and [facility]. I have reviewed the student's documentation and agree with the findings.
--- NOTE | 2023-08-13 14:02 | PM.DS ---
DS: Admitting Diagnosis Discharge Date 08/13/23 Admitting Diagnosis Pneumonia, NSTEMI DS: Discharge Diagnosis Discharge Diagnosis (1) Viral myocarditis: Code(s): B33.22 - Viral myocarditis Status: Acute (2) Pneumonia: Code(s): J18.9 - Pneumonia, unspecified organism Status: Acute (3) Elevated troponin: Code(s): R79.89 - Other specified abnormal findings of blood chemistry Status: Acute (4) Type 2 diabetes mellitus with diabetic neuropathy, unspecified: Code(s): E11.40 - Type 2 diabetes mellitus with diabetic neuropathy, unspecified Status: Acute (5) Hypertension: Code(s): I10 - Essential (primary) hypertension Status: Acute Plan # viral myocarditis, elevated troponin # community-acquired pneumonia possibly viral, multifocal PNA - patient has sick contacts, with sputum production likely a pneumonia.? chest x-rays consistent with left lower lobe and inferior right upper lobe multifocal infiltrate -antibiotics:?transition Rocephin, doxycycline to? p.o. Augmentin and doxycycline to complete 5 day course - Omid Davila for cough - appreciate cardiology consultation:? likely viral myocarditis without clinical ACS evidence - echocardiogram: LVEF 60-65%, grade 2 diastolic dysfunction - on home will develop she requires 2 L oxygen with activity, will likely wean off the next week or 2 patient follow-up PCP for further management of oxygen # chronic conditions -hyperlipidemia: Crestor, Zetia, aspirin - essential hypertension: Lisinopril,? atenolol - peripheral neuropathy:? Gabapentin -depression:? Prozac, p.r.n. Valium - gout: Allopurinol - peripheral edema: lasix - GERD: Continue Protonix Diet:?heart healthy diet DVT prophylaxis:??Lovenox Code status:?Full code Disposition:? home DS: Summary Hospital Course Reason for hospitalization: elevated troponin, pneumonia Hospital Course: Patient 82-year-old female with possible history of type 2 diabetes, CKD, essential hypertension, GERD, PAD presents to ED with rigors, productive cough. Prior to hospitalization she was recently exposed to a virus from her family. she then went to her PCP who believes she had some crackles possible COPD and prescribed prednisone. She came to the ED 08/10/2023 with atypical chest pain and cough. She was diagnosed with pneumonia treated with Rocephin, azithromycin later transition to Augmentin doxycycline. she had significant elevated troponin to 4.75 without active chest pain and Cardiology believes the elevated troponin is secondary to the pneumonia or viral myocarditis. echocardiogram showed EF 60 65%, grade 2 diastolic dysfunction, no wall motion abnormality , severe aortic valve calcification. despite significant elevated troponin, the echocardiogram was reassuring to rule out ACS. No further cardiac workup was indicated as ACS was ruled out. patient was hospitalized from 08/09- 08/12. she will complete 2 more days of Augmentin and doxycycline to complete 5 day antibiotic course. incentive spirometer was given and her hypoxic. home O2 evaluation was done recommending 2 L oxygen with activity. patient will complete antibiotics and follow-up with her PCP 1-2 weeks. At time of discharge patient's labs stable, vitals stable, patient is stable discharge home. Patient understands and agrees with plan. Status at Discharge Cognitive/behavioral status at discharge: baseline Time Spent with Patient Time attestation: Total time spent providing and/or coordinating discharge services: Exam Narrative: - GENERAL: ? pleasant elderly woman no acute distress - EYES: EOMI. Anicteric. - HENT: Moist mucous membranes. - LUNGS:? Clear to auscultation, no wheezing - CARDIOVASCULAR: Regular rate and rhythm. No murmur. No JVD. - ABDOMEN: Soft, non-tender and non-distended. No palpable masses. - EXTREMITIES: No edema. Peripheral pulses 2+. Non-tender. - NEUROLOGIC: No focal neurological deficit
--- NOTE | 2023-08-13 14:24 | PC.NURSE ---
On 08/13/23, the student, [Shawanda Blandon], provided care and completed [facility] documentation on this patient. I have reviewed the student's documentation and agree with the findings.
== END 2023-08-13 16:40 | disposition home or self-care (01) | DRG 314 ==
LOC: ANHED 08-10 06:06 → ANHIMU 08-10 07:29 → ANH2MED 08-12 20:56
PROVIDERS: Admitting Provider Internal Medicine; Emergency Provider Emergency Medicine; PCP Family Medicine; Visit Provider Student in an Organized Health Care Education/Training Program
DX: B33.22 Viral myocarditis (principal); J12.9 Viral pneumonia, unspecified; I12.9 Hypertensive chronic kidney disease with stage 1 through stage 4 chronic kidney disease, or unspecified chronic kidney disease; N18.30 Chronic kidney disease, stage 3 unspecified; I70.0 Atherosclerosis of aorta; E11.22 Type 2 diabetes mellitus with diabetic chronic kidney disease; E11.40 Type 2 diabetes mellitus with diabetic neuropathy, unspecified; E11.51 Type 2 diabetes mellitus with diabetic peripheral angiopathy without gangrene; E78.2 Mixed hyperlipidemia; E66.01 Morbid (severe) obesity due to excess calories; K21.9 Gastro-esophageal reflux disease without esophagitis; M10.00 Idiopathic gout, unspecified site; M47.816 Spondylosis without myelopathy or radiculopathy, lumbar region; M17.0 Bilateral primary osteoarthritis of knee; M19.071 Primary osteoarthritis, right ankle and foot; G25.81 Restless legs syndrome; F41.9 Anxiety disorder, unspecified; F32.A Depression, unspecified; Z20.822 Contact with and (suspected) exposure to COVID-19; Z79.82 Long term (current) use of aspirin; Z87.891 Personal history of nicotine dependence; Z85.3 Personal history of malignant neoplasm of breast
CPT/HCPCS: 36415; 36600; 71045; 71275; 80048; 80053; 81001; 82805; 83605; 83735; 84145; 84484; 85025; 85027; 85610; 85730; 87040; 87637; 93306; 94618; 94640; 96365; 96375; 97110; 97161; 97530; 99285; A9270; J0696; J1644; J1650; J2405; Q9967

== ENCOUNTER 2023-08-25 17:26 | Outpatient (CLI) | payer OTHER, SELFPAY ==
--- NOTE | ~2023-08-25 | XR_ITS ---
XR chest 2V 08/25/2023 17:47 Indication: Dyspnea Procedure: PA and lateral views the chest Comparison: Comparison to multiple prior studies sequentially, with oldest reviewed study dated 09/30. Findings: Cardiomegaly. Significant improvement of bilateral airspace disease, consistent with resolv ing pneumonia. No pleural effusion or pneumothorax. Impression: 1: Significant improvement of patchy bilateral pneumonia. Reviewed, dictated and finalized at location B. Impression: 1: Significant improvement of patchy bilateral pneumonia.
== END 2023-08-25 17:27 | disposition home or self-care (01) ==
PROVIDERS: PCP Family Medicine; Visit Provider Physician Assistant
DX: R06.00 Dyspnea, unspecified (principal); J18.9 Pneumonia, unspecified organism
CPT/HCPCS: 71046

== ENCOUNTER 2024-04-05 14:59 | Outpatient (CLI) | payer OTHER, SELFPAY ==
[2024-04-05 15:55] LABS: Influenza A QL RT-PCR Negative (Negative); Influenza B QL RT-PCR Negative (Negative); RSV RNA, RT-PCR Negative (Negative); SARS-CoV-2 RNA PCR Negative (Negative)
== END 2024-04-05 15:00 | disposition home or self-care (01) ==
PROVIDERS: PCP Family Medicine; Visit Provider Physician Assistant
DX: J02.9 Acute pharyngitis, unspecified (principal)
CPT/HCPCS: 87637

== ENCOUNTER 2025-02-11 14:45 | Emergency (ER) | payer OTHER, SELFPAY ==
--- NOTE | ~2025-02-11 | XR_ITS ---
EXAMINATION: XR chest 2V, 02/11/2025 15:46 CDT HISTORY: cough, wheezing 3-4 days, former smoker, hx pneumonia COMPARISON: No comparisons available. Technique: 2 views obtained. Findings: The lungs are clear, no effusion. No pneumothorax. Heart is normal size. Mediastinal and hilar contours are within normal limits. Bony thorax no acute abnormality. Impression: No acute cardiopulmonary abnormality. Reviewed, dictated and finalized at location P. Impression: No acute cardiopulmonary abnormality.
[2025-02-11 14:56] VITALS: BP 134/38; PULSE 72; RESP 18; TEMP 37.2; O2SAT 96
--- NOTE | 2025-02-11 15:32 | ED_ITS ---
HPI - General Adult General Chief complaint: Upper Respiratory Infection Stated complaint: cough/wheezing Source: patient Mode of arrival: ambulatory Limitations: no limitations History of Present Illness HPI narrative: Patient presents for evaluation of sick symptoms for the past three days. Symptoms include sinus congestion, sore throat, generalized body aches, headache, wheezing and productive cough of yellow sputum. She denies any fever, chills, nausea, vomiting or diarrhea. She has a history of pneumonia that developed after she was evaluated at a medical center and discharged. She ended up being seen in the ER and admitted for four days. She has been taking coricidin for her symptoms. She does not smoke or vape. No underlying history of asthma or COPD. Related Data Home Medications ?Medication ?Instructions ?Recorded ?Confirmed ?Last Taken ?Type aspirin 81 mg tablet,delayed 81 mg PO EVERY OTHER DAY 11/05/22 09/01/24 Unknown History release Allergies Allergy/AdvReac Type Severity Reaction Status Date / Time clarithromycin Allergy Unknown Unknown Verified 02/11/25 14:57 dextromethorphan Allergy Unknown Unknown Verified 02/11/25 14:57 fenofibrate Allergy Unknown Unknown Verified 02/11/25 14:57 guaifenesin Allergy Unknown Anaphylactic Verified 02/11/25 14:57 Shock levofloxacin Allergy Unknown Nausea Verified 02/11/25 14:57 metformin Allergy Unknown Rash Verified 02/11/25 14:57 Review of Systems Review of Systems: CONSTITUTIONAL: Denies fever, chills, or sweats. EYES: Denies visual changes, redness, or discharge. ENT: Reports sinus congestion and sore throat CARDIOVASCULAR: Denies chest pain, palpitations, or edema. RESPIRATORY: Reports cough and wheezing. Denies SOB GASTROINTESTINAL: Denies abdominal pain, nausea, vomiting, or diarrhea. GENITOURINARY: Denies dysuria or hematuria. SKIN: Denies rash or itching. MUSCULOSKELETAL: Reports generalized body aches NEUROLOGIC: Reports headache. Denies numbness, dizziness, or weakness. PSYCHIATRIC: Denies anxiety or depression. FORMERLY [facility] Past Medical History Medical History Viral myocarditis Colon cancer screening declined Elevated troponin Pneumonia Acute non-ST elevation myocardial infarction (NSTEMI) Pneumonia Hypertension Respiratory infection Cough BMI 32.0-32.9,adult Dermatitis Xerosis cutis Breast cancer screening Postmenopausal Hypertriglyceridemia Arthritis Decreased GFR Hypotension Allergic rhinosinusitis Arthritis Chemotherapy-induced neuropathy Swelling of right ankle joint Bilateral lower extremity edema Cellulitis of right lower extremity Injury of left rotator cuff Cellulitis of lower extremity Atherosclerosis of abdominal aorta Lumbar spondylosis Osteoarthritis of knees, bilateral Prediabetes History of radiation therapy Breast cancer Arthritis Depression Post-menopausal Anxiety Bronchitis RLS (restless legs syndrome) Cataracts, bilateral Acute pain of left shoulder Posterior neck pain Breast screening Essential (primary) hypertension GENARO (generalized anxiety disorder) Gastroesophageal reflux disease without esophagitis Idiopathic gout, unspecified site Major depressive disorder, recurrent, moderate Mixed hyperlipidemia Morbid (severe) obesity due to excess calories Neuropathic pain PAD (peripheral artery disease) 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 Surgical History Surgical History History of hysterectomy History of lumpectomy of left breast History of cataract surgery Family History Family History Mother Family history of respiratory disorder, Onset Age: 88 Patient's mother is Father Family history of lung cancer, Onset Age: 93 Other Family history of arthritis Social History Social History Social History: Smoking status: Former smoker Tobacco type: cigarettes Second hand tobacco smoke exposure: No Smoking end date: 05/04/85 Alcohol intake: never Substance use: never Substance use type: does not use Do You Feel Safe in your Home?: Yes Lack of Transportation: YES Lack of Food: Never True Current Housing: I Have Housing Concerned About Future Housing: No Difficulty Paying Gas/Electric Bills: No Difficulty Paying for Meds: No Currently Unemployed: YES Education: Don't Know Difficulty w/ Childcare or Family Care: No Living arrangements: with family Occupation/Education: retired Gender identity (if verbalized by the patient): Female Sexual Orientation (if Verbalized by the Patient): Straight or Heterosexual Spiritual care concerns: No Exam Narrative: GENERAL: Well-appearing, well-nourished, and in no acute distress. HEAD: Normocephalic, atraumatic. EYES: PERRLA and EOMI. ENT: Nares clear, no rhinorrhea or epistaxis. Mucous membranes moist. Oropharynx without tonsillar hypertrophy exudate or other lesions. Bilateral TMs pearly adams nonbulging NECK: Supple. No adenopathy or masses. No carotid bruits or JVD CHEST: Clear to auscultation. No respiratory distress. No wheezes rales or rhonchi HEART: Regular rate and rhythm. No murmur heard. Normal peripheral pulses. ABDOMEN: Soft, nontender, nondistended, normal active bowel sounds. EXTREMITIES: Normal range of motion. No edema. SKIN: Warm, dry, no rash. NEURO: No focal deficits. Alert and oriented x3. PSYCH: Normal mood and affect. Course Course Emergency Course: this is an 84-year-old female who presented for evaluation of sick symptoms. Strep, COVID, influenza were negative. Will send throat culture. Chest x-ray was normal. Through shared decision making opted to proceed with abx therapy as she had similar symptoms in the past that progressed into pneumonia. She appear s well. She will be discharged into the company of her family. She should follow-up with her primary care provider and go to the ER for worsening symptoms. Pt in agreement with plan of care. Level of Care: Express Care Visit Vital Signs Vital signs: Vital Signs Temperature 37.2 C 02/11/25 14:56 Pulse Rate 72 02/11/25 14:56 Respiratory Rate 18 02/11/25 14:56 Blood Pressure 134/38 L 02/11/25 14:56 Pulse Oximetry 96 02/11/25 14:56 Oxygen Delivery Room Air 02/11/25 14:56 Temperature 37.2 C 02/11/25 14:56 Pulse Rate 72 02/11/25 14:56 Respiratory Rate 18 02/11/25 14:56 Blood Pressure 134/38 L 02/11/25 14:56 Pulse Oximetry 96 02/11/25 14:56 Oxygen Delivery Room Air 02/11/25 14:56 Medical Decision Making Vital Signs Vital Signs: Vital Signs Temperature 37.2 C 02/11/25 14:56 Pulse Rate 72 02/11/25 14:56 Respiratory Rate 18 02/11/25 14:56 Blood Pressure 134/38 L 02/11/25 14:56 Pulse Oximetry 96 02/11/25 14:56 Oxygen Delivery Room Air 02/11/25 14:56 Temperature 37.2 C 02/11/25 14:56 Pulse Rate 72 02/11/25 14:56 Respiratory Rate 18 02/11/25 14:56 Blood Pressure 134/38 L 02/11/25 14:56 Pulse Oximetry 96 02/11/25 14:56 Oxygen Delivery Room Air 02/11/25 14:56 Lab Data Labs: Lab Results 02/11/25 02/11/25 Range/Units 15:31 15:32 POC Influenza A Ag Negative (Negative) POC Influenza B Ag Negative (Negative) POC SARS CoV-2 Ag Negative (Negative) Imaging Data Radiologist's impression: EXAMINATION: XR chest 2V, 02/11/2025 15:46 CDT HISTORY: cough, wheezing 3-4 days, former smoker, hx pneumonia COMPARISON: No comparisons available. Technique: 2 views obtained. Findings: The lungs are clear, no effusion. No pneumothorax. Heart is normal size. Mediastinal and hilar contours are within normal limits. Bony thorax no acute abnormality. Impression: No acute cardiopulmonary abnormality. Discharge Plan Discharge Clinical Impression: Pharyngitis Patient Disposition: Home Condition: Stable Instructions: Antibiotic Form, Pharyngitis (ED) Patient Language: Italian Prescriptions: New amoxicillin-pot clavulanate 875-125 mg tablet 1 tablet PO Q12H Qty: 20 0RF No Action aspirin 81 mg tablet,delayed release (DR/EC) 81 mg PO EVERY OTHER DAY fluticasone propionate 50 mcg/actuation spray,suspension 1 spray intranasal BID Qty: 18 0RF Rx Instructions: administer into each nostril albuterol sulfate 90 mcg/actuation HFA aerosol inhaler See Rx Instructions .ROUTE .COMPLEX Qty: 8.5 0RF Dose Instruction: INHALE 1 PUFF BY MOUTH EVERY 4 HOURS NEEDED FOR SHORTNESS OF BREATH/WHEEZING Rx Instructions: INHALE 1 PUFF BY MOUTH EVERY 4 HOURS NEEDED FOR SHORTNESS OF BREATH/WHEEZING ezetimibe 10 mg tablet See Rx Instructions .ROUTE .COMPLEX Qty: 100 1RF Dose Instruction: TAKE 1 TABLET BY MOUTH DAILY Rx Instructions: TAKE 1 TABLET BY MOUTH DAILY omeprazole 20 mg capsule,delayed release(DR/EC) See Rx Instructions .ROUTE .COMPLEX Qty: 90 2RF Dose Instruction: TAKE 1 CAPSULE BY MOUTH EVERY DAY Rx Instructions: TAKE 1 CAPSULE BY MOUTH EVERY DAY atenolol 100 mg tablet See Rx Instructions .ROUTE .COMPLEX Qty: 90 3RF Dose Instruction: TAKE 1 TABLET BY MOUTH EVERY DAY Rx Instructions: TAKE 1 TABLET BY MOUTH EVERY DAY lisinopril 5 mg tablet See Rx Instructions .ROUTE .COMPLEX Qty: 100 1RF Dose Instruction: TAKE 1 TABLET BY MOUTH EVERYDAY AT BEDTIME Rx Instructions: TAKE 1 TABLET BY MOUTH EVERYDAY AT BEDTIME fluoxetine 20 mg capsule See Rx Instructions .ROUTE .COMPLEX Qty: 90 3RF Dose Instruction: TAKE 1 CAPSULE BY MOUTH EVERY DAY Rx Instructions: TAKE 1 CAPSULE BY MOUTH EVERY DAY allopurinol 100 mg tablet 200 mg PO DAILY Qty: 180 1RF gabapentin 600 mg tablet See Rx Instructions .ROUTE .COMPLEX Qty: 270 2RF Dose Instruction: TAKE 1 TABLET BY MOUTH THREE TIMES A DAY Rx Instructions: TAKE 1 TABLET BY MOUTH THREE TIMES A DAY acetaminophen-codeine 300-30 mg tablet 1 tablet PO Q8H Qty: 90 0RF diazepam 5 mg tablet 5 mg PO BID PRN (Reason: anxiety) Qty: 60 0RF rosuvastatin 20 mg tablet See Rx Instructions .ROUTE .COMPLEX Qty: 90 1RF Dose Instruction: TAKE 1 TABLET BY MOUTH EVERY DAY Rx Instructions: TAKE 1 TABLET BY MOUTH EVERY DAY furosemide 20 mg tablet See Rx Instructions .ROUTE .COMPLEX Qty: 45 2RF Dose Instruction: TAKE 1 TABLET BY MOUTH EVERY OTHER DAY Rx Instructions: TAKE 1 TABLET BY MOUTH EVERY OTHER DAY Follow-up/Referrals: Agustin Hitchcock MD [Primary Care Provider, Family Practice] Time of Disposition: 16:28
[2025-02-11 15:33] LABS: EDCOVIDSCREEN Negative (Negative)
[2025-02-11 15:33] LABS: EDINFLUASCREEN Negative (Negative); EDINFLUBSCREEN Negative (Negative)
[2025-02-11 16:29] LABS: EDSTREPNEGPOS1 Negative (Negative)
== END 2025-02-11 16:35 | disposition home or self-care (01) ==
PROVIDERS: Emergency Provider Nurse Practitioner; PCP Family Medicine
DX: J02.9 Acute pharyngitis, unspecified (principal); Z20.822 Contact with and (suspected) exposure to COVID-19; I10 Essential (primary) hypertension; E11.29 Type 2 diabetes mellitus with other diabetic kidney complication; I73.9 Peripheral vascular disease, unspecified; K21.9 Gastro-esophageal reflux disease without esophagitis; G25.81 Restless legs syndrome; M19.90 Unspecified osteoarthritis, unspecified site; M17.0 Bilateral primary osteoarthritis of knee; I70.0 Atherosclerosis of aorta; I25.2 Old myocardial infarction; F33.9 Major depressive disorder, recurrent, unspecified; F41.1 Generalized anxiety disorder; E66.01 Morbid (severe) obesity due to excess calories; Z68.34 Body mass index [BMI] 34.0-34.9, adult; Z85.3 Personal history of malignant neoplasm of breast; Z90.12 Acquired absence of left breast and nipple; Z87.891 Personal history of nicotine dependence; Z79.82 Long term (current) use of aspirin
CPT/HCPCS: 71046; 87081; 87426; 87804; 87880; 99213; G0463

== ENCOUNTER 2025-05-02 16:39 | Outpatient (CLI) | payer OTHER, SELFPAY ==
--- NOTE | ~2025-05-02 | XR_ITS ---
XR chest 2V 05/02/2025 16:58 Indication: Shortness of breath Procedure: 2 view chest Comparison: No prior studies for comparison. Findings: There is right basilar atelectasis. There are calcified granulomas left lung base. Cardiomegaly. No focal pneumonia, edema, pleural effusion or pneumothorax. There is diffuse idiopathic skeletal hyperostosis (DISH) of the thoracic spine. Impression: 1: Right basilar atelectasis. 2: Cardiomegaly. Reviewed, dictated and finalized at location O. NEERING TECHNICIAN Impression: 1: Right basilar atelectasis. 2: Cardiomegaly.
--- OUTSIDE RECORDS SUMMARY | 2025-05-02 16:43 | XMS_ITS | Clinical Summary ---
Author Organization [facility] Care Team Providers Care Block Captain Name Role Phone Unavailable Primary Care Provider Unavailabl e Social History Tobacco Use Types Packs/Day Years Used Date Smoking Tobacco: Never Assessed Comments Unknown Sex and Gender Information Value Date Recorded Sex Assigned at Not on file Legal Sex Female 8:17 PM CDT Gender Identity Not on file Sexual Orientation Not on file Plan of Treatment Health Maintenance Due Date Last Done Comments Hepatitis C Virus (HCV) Screening 1940 TdaP Immunization 1940 Pneumococcal Immunization (5 0+ years) (1 of 1 - PCV) 1990 Zoster Immunization (1 of 2) 1990 Respiratory Syncytial Virus (RSV) Immunization (Adult) (1 - 1-dose 75+ series) 09/21/2015 Influenza Immunization (#1) 01/02/202504/03, 01/27/2013 SARS-COV-2 Immunization ( season) 2025 04/22/2021, 07/28/2020, 07/05/2020 Hepatitis B Immunization Aged Out No longer eligible based on patient's age to complete this topic Human Papillomavirus (HPV) Immunization Aged Out No longer eligible b ased on patient's age to complete this topic Meningococcal Immunization (ACWY) Aged Out No longer eligible b ased on patient's age to complete this topic Rotavirus Immunization Aged Out No lo nger eligible based on patient's age to complete this topic
--- OUTSIDE RECORDS SUMMARY | 2025-05-02 16:43 | XMS_ITS | Clinical Summary ---
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 Gender Identity Not on file Sexual Orientation Not on file Last Filed Vital Signs Vital Sign Reading Time Taken Comments Blood Pressure 102/60 12/09/2012 11:15 AM CDT Pulse - - Temperature - - Respiratory Rate - - Oxygen Saturation - - Inhaled Oxygen Concentration - - Weight 103.4 kg (228 lb) 12/09/2012 11:15 AM CDT Height 162.6 cm (5' 4) 08/10/2012 2:34 PM CDT Body Mass Index 39.14 08/10/2012 2:34 PM CDT Plan of Treatment Health Maintenance Due Date Last Done Comments DTaP, Tdap and Td Vaccines ( 1 - Tdap) 05/05/2004 05/04/2004 Dexa Scan (General) 2005 Pneumococcal Vaccine: 50+ Ye ars (2 of 2 - PCV) 05/04/2010 05/04/2009 Zoster Vaccines (2 of 3) 06/29/2010 05/04/2010 RSV Immunization or 60+ Years (1 - 1-dose 75+ series) 09/21/2015 COVID-19 Vaccine ( - 2024-2 6 season) 2025 Influenza Adult (#1) 2025 Hepatitis A Vaccines Aged Out No long er eligible based on patient's age to complete this topic Meningococcal B Vaccine Aged Out No l onger eligible based on patient's age to complete this topic Meningococcal Vaccine Aged Out No favian angeli eligible based on patient's age to complete this topic RSV Immunizations Under 20 Months Aged Out No longer eligible based on patient's age to complete this topic Care Teams Power System Operator Relationship Specialty Start Date End Date Rosanna Zuniga MD PCP - General 11/03/11
[2025-05-02 18:13] LABS: Influenza A QL RT-PCR Negative (Negative); Influenza B QL RT-PCR Negative (Negative); RSV RNA, RT-PCR Negative (Negative); SARS-CoV-2 RNA PCR Negative (Negative)
== END 2025-05-02 16:40 | disposition home or self-care (01) ==
PROVIDERS: PCP Family Medicine; Visit Provider Physician Assistant
DX: J02.9 Acute pharyngitis, unspecified (principal); Z20.822 Contact with and (suspected) exposure to COVID-19
CPT/HCPCS: 71046; 87637